=== PATIENT | male | born 1960 | race Caucasian/White ===

== ENCOUNTER → 2024-07-07 14:07 | Outpatient (REF) | payer BC, SELFPAY | LOC: RAD 14:07 | PROVIDERS: ATTENDING PHYSICIAN Internal Medicine; FAMILY PHYSICIAN Family Medicine | DX: M79.89 Other specified soft tissue disorders (principal) | CPT/HCPCS: 93971 ==

== ENCOUNTER 2024-08-11 07:46 | Outpatient (RCR) | payer BC, SELFPAY ==
[2024-08-11 08:00] VITALS: BP 132/91
[2024-08-11] MEDS: SODIUM BICARBONATE 1150 MEQ IV (08:03)
[2024-08-11 09:56] VITALS: BP 130/78
== END 2024-08-13 08:38 | disposition home or self-care (01) ==
LOC: OID 07:46
PROVIDERS: ATTENDING PHYSICIAN Surgery Vascular Surgery; FAMILY PHYSICIAN Family Medicine
DX: I72.4 Aneurysm of artery of lower extremity (principal)
CPT/HCPCS: 75635; 96365; 96366; Q9967

== ENCOUNTER → 2024-08-11 08:09 | Outpatient (REF) | payer BC, SELFPAY | LOC: RAD 08:09 | PROVIDERS: ATTENDING PHYSICIAN Surgery Vascular Surgery | DX: I72.4 Aneurysm of artery of lower extremity (principal) | CPT/HCPCS: 75635; Q9967 ==

== ENCOUNTER 2024-09-30 06:05 | Inpatient (IN) | payer BC, SELFPAY ==
[2024-09-27 09:14] VITALS: BMI 27.2
[2024-09-27 09:48] LABS: INR 1.29; PT 16.4 Sec (11.4-14.6)
[2024-09-27 09:49] LABS: APTT 37.7 Sec (23.4-35.0)
[2024-09-27 09:51] LABS: % Basophils 0.4 % (0-2); % Immature Granulocytes 0.5 % (0-0.5); % Lymphocytes 13.6 % (20.5-51.1); % Monocytes 8.1 % (1.7-9.3); % Neutrophils 74.4 % (42.2-75.2); Absolute Eosinophils 0.3 10^3/uL (0-0.7); Absolute Lymphocytes 1.1 10^3/uL (1.2-3.4); Absolute Monocytes 0.7 10^3/uL (0.1-0.6); Absolute Neutrophils 6.3 10^3/uL (1.4-6.5); Hematocrit 36.9 % (39.0-52.0); Hemoglobin 11.6 g/dL (13.0-18.0); Mean Corp Hgb Conc. 31.4 g/dL (33.0-37.0); Mean Corpuscular Volume 82.7 fL (80.0-94.0); Mean Platelet Volume 9.3 fL (7.4-10.4); Nucleated Red Blood Cells % 0 % (-); Platelet Count 243 10^3/uL (130-400); Red Blood Cell Count 4.46 10^6/uL (4.70-6.10); Red Cell Dist. Width 16.8 % (11.5-14.5); White Blood Cell Count 8.4 10^3/uL (4.8-10.8)
[2024-09-27 09:59] LABS: Blood Urea Nitrogen 33 mg/dl (9-20); Calcium 9.5 mg/dl (8.4-10.2); Carbon Dioxide 24 mmol/L (22-30); Chloride 105 mmol/L (98-107); Estimated Creatinine Clearance 32 ml/min; Glucose 148 mg/dl (70-99); Potassium 4.6 mmol/L (3.5-5.1); Sodium 139 mmol/L (135-145); eGFR 31.13
[2024-09-30] VITALS (10 sets, daily range): BP systolic 95–120; BP diastolic 68–84; BMI 27.2
[2024-09-30] MEDS: PERIDEX 0.12% ORAL RINSE 15 ML PO (06:32)
[2024-09-30] MEDS: BACTROBAN NASAL 1 GRAM NASAL (06:32)
[2024-09-30] MEDS: NSS 500 IV (06:33)
[2024-09-30 06:54] LABS: Glucose - Point of Care 119 mg/dl (70-99)
--- NOTE | 2024-09-30 07:07 | W.SUR.PREOP ---
Pre-Operative Surgical Note
-
I have examined this patient prior to the performance of the scheduled procedure.
The patient's condition is unchanged from the time of the current History and
Physical and the patient is able to undergo the scheduled procedure.
--- NOTE | 2024-09-30 10:45 | W.SUR.POST ---
Surgical Immediate Post Op
Note
Pre Op Diagnosis: Left lower extremity popliteal artery aneurysm
Post Op Diagnosis: Left lower extremity popliteal artery aneurysm
Procedure Performed: Ligation of left popliteal artery aneurysm with bypass utilizing saphenous vein
Primary Surgeon: Kadeem Jacobsen MD
chiropractic assistant: BERYL Rahman
Anesthesia: GETA
Estimated Blood Loss: 20 mL
Fluids: See anesthesia flowsheet
Drains/Shunts: N/A
Specimens/Cultures: N/A
Doppler/Duplex/Angio (Y/N): Yes
Complications: None
Operative Findings: Palpable DP pulse following procedure
--- NOTE | 2024-09-30 10:47 | OR.RPT ---
Operative Report
Operative Report
PROCEDURE DATE: 09/30/2024
Preoperative diagnosis: Left popliteal artery aneurysm.
Postoperative diagnosis: Same
Procedure: Open surgical repair of left popliteal artery aneurysm with medial exclusion/bypass using ipsilateral nonreversed greater saphenous vein conduit.
Surgeon: Delmar
Electronic Resources Librarian: FÉLIX Dee, required for all aspects of procedure including assistance with traction/countertraction, following of suture line, assistance with closure.
Complications: None
Anesthesia: General
Indications for procedure:
Left popliteal artery aneurysm. Met size criteria for repair. In addition may have caused some transient compressive effects. Had discussed posterior approach to relieve any potential compression, but based on anatomy and proximal extent, I felt
it was not easily feasible from a posterior approach. In addition his symptoms of swelling had abated. Regardless with/benefits/alternatives of repair were fully discussed. Patient understood and wished to proceed.
Description of procedure:
Patient was identified brought to the operating room placed on the table in supine position. After the adequate administration of anesthesia he was prepped and draped in the standard surgical fashion. A standard preoperative timeout was undertaken
and everybody was in agreement the plan. A longitudinal incision was made in the distal medial thigh that was carried through skin subcutaneous tissue. The sartorius muscle was reflected posteriorly. I dissected through the loose areolar tissue
and identified the above-knee popliteal artery. I carefully dissected away from surrounding structures taking care to avoid any injury to the structures. I circumferentially dissected it right at a knuckle like tortuosity. This correlated on the
CT scan to the transition from where it was more normal to slightly abnormal and then subsequently aneurysmal. Therefore I felt that this was a good juncture and would be a good location for proximal anastomosis. At this point, I then in the
subcutaneous tissues at the inferior aspect of the incision site was able to identify the greater saphenous vein which had marked preoperatively. I now dissected it within this surgical field. It was mobilized out of its bed, any branches ligated
between silk ties and/or clips and then divided. Now I made a longitudinal incision just below the knee in the medial calf about 1 fingerbreadth inferior to the tibia. This is carried through the skin subcutaneous tissue. Great care was taken to
avoid any injury to the greater saphenous vein in this field. I carefully mobilized the vein here ligating any branches between silk ties and then dividing them. However I did note that the vein looked slightly smaller in this segment. Therefore
I was not sure that I would use it. Regardless I was able to retract the vein inferiorly and then used the electrocautery to dissect through the deeper layers and the crural fascia layer. I then reflected the gastrocnemius muscle posteriorly and
identified the popliteal vein and the artery. The artery was soft and nicely pulsatile here. I passed a vessel loop around after careful circumferential dissection.
Now that I had proximal and distal arterial exposure, I initially thought perhaps I could create an anatomic tunnel, however I was concerned that due to the popliteal artery aneurysm the anatomic tunnel would be very tight. In addition and trying
to dissect along the popliteal artery proximally and distally behind the knee in order to facilitate a tunnel, I noted that the artery was very sticky and inflamed to the surrounding tissues as is the case often with popliteal artery aneurysms.
Therefore I elected not to tunnel in such a fashion. I created a subsartorial tunnel between the above the knee and below the knee exposure sites. I passed an umbilical tape. I confirmed that there was no tendon or muscle compression through this
tunnel. (I flexed and extended the knee confirming that). Now I completed dissection and mobilization of the vein. I noted that as I extended my incision more proximally in the thigh the vein appeared more robust. I was more satisfied with its
appearance. Therefore I dissected for a suitable portion in the thigh slightly more proximally. I mobilized out of its bed by ligating any branches between silk ties and/or clips and then dividing them. Once I had a suitable section mobilized, I
ligated the vein proximally distally with heavy silk tie and a clip. I then transected approximately distally. I then distended under heparinized saline. It distended well. I now used a Wilkins valvulotome and with the vein under distention with
heparinized saline, I valvulotomized the vein. This way I could maintain the vein in a nonreversed fashion. Now I gave the patient 7000's of intravenous heparin. Once this had circulated I now clamped the proximal above the knee popliteal artery
just proximal to the knuckle like to turn. I then ligated the more distal popliteal artery with a heavy silk tie x 2 as well as silk suture ligature. I then transected the artery. I now spatulated the greater saphenous vein (maintaining
nonreversed orientation) and sewed an end-to-end anastomosis to the popliteal artery using a running 6-0 Prolene suture. I then completed and tied down my suture line. I then released my graft clamp. There was excellent pulsatile flow into the
vein graft. I placed a single 6-0 Prolene muallc-pd-nbfxf repair stitch on a single site of bleeding on the suture line. Hemostasis was fully noted now. I marked the anterior surface of the vein under distention to avoid any kinking or twisting
and then passed it through my tunnel that I created. I confirmed no kinking and there was excellent pulsatile flow still. I then reexposed my below the knee popliteal artery here. I confirmed no redundancy of the vein through the tunnel. I then
ligated the popliteal artery proximally in the field with 2 heavy silk ties thereby completing the medial exclusion of the popliteal artery aneurysm. I did not need to place an additional suture ligature as the ties were proximal to a small branch
that held the ties better in place, and I did place additional clips as well. The distal end of the popliteal artery looks reasonably healthy. I now trimmed and spatulated the distal aspect of the vein graft and sewed an end-to-end anastomosis to
the popliteal artery below the knee with a running 6-0 Prolene suture. Prior to completing and tying down my suture line I backbled the [place] artery and then transiently flashed my bulldog clamp on the vein graft. I then irrigated heparinized
saline. I then completed and tied down my suture line. Next I released my below the knee popliteal artery clamp and released the bulldog clamp on the vein graft. There is now excellent pulsatile flow through the vein graft and into the below the
knee popliteal artery. Doppler confirmed this as well. The patient had a palpable dorsalis pedis pulse on the foot, and this was confirmed with a Doppler as well. I also confirmed no diminution in the pulsation or Doppler signals with flexion or
extension of the knee. I manually with my finger and noted no compression of the vein graft through the tunnel. At this point is very satisfied. I placed a single 6-0 Prolene omylad-rz-rhldp repair suture on the below the knee popliteal artery
suture line, and hemostasis were then fully noted. I irrigated the incision sites. I then confirmed full hemostasis. We then closed the incision sites. The arterial exposure sites were closed with 2-0 Vicryl's interrupted deep layer. This was
followed by 3-0 Vicryl and 4-0 Monocryl subcuticular stitch. The continuation of the above-knee incision that was where we harvested the greater saphenous vein from was closed with 3-0 Vicryl running followed by 4-0 Monocryl subcuticular stitch as
well. Dermabond was applied to closure sites. Dressings were applied. The patient tolerated procedure well.
[2024-09-30 11:20] LABS: Hematocrit 33.3 % (39.0-52.0); Hemoglobin 10.4 g/dL (13.0-18.0); Mean Corp Hgb Conc. 31.2 g/dL (33.0-37.0); Mean Corpuscular Hgb 26.3 pg (27.0-31.0); Mean Corpuscular Volume 84.3 fL (80.0-94.0); Mean Platelet Volume 8.9 fL (7.4-10.4); Platelet Count 183 10^3/uL (130-400); Red Blood Cell Count 3.95 10^6/uL (4.70-6.10); Red Cell Dist. Width 16.7 % (11.5-14.5); White Blood Cell Count 10.1 10^3/uL (4.8-10.8)
[2024-09-30 11:38] LABS: Blood Urea Nitrogen 37 mg/dl (9-20); Calcium 7.8 mg/dl (8.4-10.2); Carbon Dioxide 12 mmol/L (22-30); Chloride 105 mmol/L (98-107); Estimated Creatinine Clearance 33 ml/min; Glucose 218 mg/dl (70-99); Potassium 4.4 mmol/L (3.5-5.1); Sodium 136 mmol/L (135-145); eGFR 32.83
[2024-09-30] MEDS: NSS 1000 IV (11:42)
[2024-09-30] MEDS: NOVOLOG vial 2 UNITS SC (11:45)
--- NOTE | 2024-09-30 12:30 | PTCARENOTE ---
Pt was rec'd from [employer] [facility] and settled into ICU room 3357. Pt is AOx3, pleasant, soft spoken, no c/o pain at this time. GARCIA, Neurovascular checks performed per protocol, see flowsheet. SR with PVCs on tele, ECG performed per protocol, DP pulses
palpable, right radial A line leveled and zeroed, correlating with cuff. Sa02 97% on 2L, attempting to wean off 02. CLD ordered, pt tolerating well with no nausea, diet advanced to regular per orders. 16 fr thermister guzman draining clear yellow
urine, due to be removed POD #2. Skin assessed, post op dressing in place, C/D/I. Pt oriented to room and plan of care. Admission and assessment as documented. Pt oriented to room and plan of care. Safe environment maintained.
--- NOTE | 2024-09-30 13:13 | CON.INTV ---
Consultation
Consultation Request
Date/Time Consultation Requested: 09/30/2024-1:15 PM
Date/Time Consultation Performed: 09/30/2024-1:15 PM
Requesting Provider: Vascular surgery
Performing Provider: Dr. Morales
Reason for Consultation: Postop critical care management
Medical History
-
Chief Complaint: PAD
History of Present Illness:
64-year-old male with history of hypertension, diabetes, cardiomyopathy, ANCA vasculitis, alcohol use disorder, atrial flutter who had left popliteal artery aneurysm underwent open surgical repair with medial exclusion/bypass using ipsilateral
greater saphenous vein conduit-Dr. Jacobsen-supervisor of research consulted for postoperative critical care management 09/30/2024. He denies any shortness of breath, chest pain, chest congestion, productive cough, pleurisy, abdominal pain, focal weakness
Past Medical History
Past Medical History: None (Hypertension. Diabetes. Atrial flutter with AV block-cardioversion 01/2022. Left atrial appendage thrombus. Mitral regurgitation. Alcohol use disorder-none 2017. Cardiomyopathy EF 25% 2018. Gout. ANCA vasculitis
2021. Right eye surgery.)
Social History
Tobacco: Non-smoker
Alcohol: Former (None since 2017)
Drug: None
Living: With Family
Occupational Exposures: No known asbestos exposure
Environmental Exposures: No known tuberculosis exposure
Family History
Family History: Reviewed & Not Pertinent
Allergies / Home Medications
Allergies
Allergy/AdvReac Type Severity Reaction Status Date / Time
No Known Allergies Allergy Verified 09/30/24 06:26
Home Medications
�Medication �Instructions �Recorded �Confirmed �Last Taken �Type
apixaban 5 mg tablet (Eliquis) 5 mg PO BID Blood clot 11/06/21 09/30/24 09/27/24 22:00 History
prevention/tx
isosorbide dinitrate 10 mg tablet 10 mg PO TID Heart 11/06/21 09/30/24 09/30/24 05:30 History
disease/condition
metoprolol succinate 100 mg 200 mg PO DAILY Heart 11/06/21 09/30/24 09/30/24 05:30 History
tablet,extended release 24 hr disease/condition
prednisone 20 mg tablet 4 mg PO DAILY 01/24/22 09/30/24 09/28/24 05:00 History
amlodipine 10 mg tablet 10 mg PO DAILY 08/11/24 09/30/24 09/30/24 05:30 History
losartan 50 mg tablet 75 mg PO DAILY 08/11/24 09/30/24 09/30/24 05:30 History
Review of Systems
-
Unable to Obtain full review of systems at this time due to: Other (Per HPI)
Vitals / Labs / Diagnostic Testing
Vital Signs
Temp Pulse Resp BP Pulse Ox
97.4 F 87 12 108/75 94
09/30/24 11:45 09/30/24 12:30 09/30/24 12:30 09/30/24 12:30 09/30/24 12:30
Lab Data
09/30/24 10:57
09/30/24 10:57
Diagnostic Testing:
Physical Exam
-
Exam:
Well-nourished and well-developed in no apparent distress
HEENT-atraumatic, normocephalic
Neck-supple, no JVD, no bruit
Heart-regular rate and rhythm-no murmurs, rubs or gallops
Chest-clear to auscultation, no wheezes, crackles
Back-no tenderness
Abdomen-soft, nontender, nondistended, no hepatosplenomegaly
Extremities-no cyanosis, clubbing, edema and good peripheral pulses
Integument-intact, no rashes, lesions or ecchymosis
Neurology-alert and oriented, nonfocal motor and sensory exam
Assessment
-
64-year-old male with history of hypertension, diabetes, cardiomyopathy, ANCA vasculitis, alcohol use disorder, atrial flutter who had left popliteal artery aneurysm underwent open surgical repair with medial exclusion/bypass using ipsilateral
greater saphenous vein conduit-Dr. Jacobsen-supervisor of research consulted for postoperative critical care management 09/30/2024.
Left popliteal artery aneurysm
Status post bypass using ipsilateral greater saphenous vein conduit-Dr. Jacobsen-09/30/2024
Mild vurwez-dewzdnsbom-peskqlaiau 10.4
Metabolic acidosis
Chronic renal failure
Hyperglycemia
Hypocalcemia
Conditions present prior to admission:
Hypertension.
Diabetes.
Atrial flutter with AV block-cardioversion 01/2022.
Left atrial appendage thrombus.
Mitral regurgitation.
Alcohol use disorder-none 2017.
Cardiomyopathy EF 25% 2017-subsequently resolved after alcohol cessation
Gout.
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
Chronic kidney disease-stage IIIa with proteinuria
Elevated anticardiolipin IgM antibody 2021
History of WILLIE-stopped using CPAP-last sleep study over 10 years ago
Right eye surgery.
Plan
Postoperative surgical intensive care unit monitoring
Supplemental oxygen as needed
Incentive spirometry
Aspiration precautions
Neuro and vascular checks per protocol
Monitor blood pressure/perfusion pressures and pulses closely
Vascular surgery following-correspondence and operative notes reviewed
Monitor blood sugar
Insulin supplementation as needed
Monitor renal function
Replace electrolytes
DVT prophylaxis
Early nutrition
Early mobilization
Associations with untreated sleep apnea were reviewed with patient
Patient reports history of WILLIE and previous CPAP use-none in the last 10 years-recommend outpatient evaluation
Critical care statement: A total of 55 minutes of critical care time was provided for this patient today. This includes management of unstable vital signs, evaluation of the patient at bedside, reviewing the patient's pertinent medical records
including radiographs, microbiology, laboratory evaluations, and discussion with primary team, consultants, pharmacy, nutrition, physical therapy, case management, charge nurse, critical care nursing, and respiratory therapy.
Diagnostic data:
Chest x-ray 02/03/2018-enlarged cardiac silhouette
Chest x-ray 11/06/2021-mild cardiomegaly
Chest x-ray 09/27/2024-NAD
Echocardiogram 02/04/2018-EF 15-20%, severe mitral regurgitation
Echocardiogram 07/02/2019-EF 55-60%, intermediate diastolic dysfunction, mild to moderate mitral regurgitation
Echocardiogram 09/03-EF 70-75%, no significant valvular disease
Transesophageal echocardiogram 01/24/2022-EF 55-60%, mild to moderate mitral regurgitation
Cardioversion 01/24/2022-successful synchronized cardioversion from atrial fibrillation to sinus rhythm
Nuclear stress test 09/03-negative for ischemia, EF 45%, moderate risk study
VQ scan 02/03/2018-Normal ventilation/perfusion scan, very low probability for pulmonary embolism
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
Data Reviewed
-
EKG: Report reviewed by me
Radiology: Report reviewed by me
CT Scan: Report reviewed by me
Medical Tests (Nuc Med, Echo etc): Report reviewed by me
Labs: Labs reviewed by me
Old Records: Reviewed
Critical Care Time (in minutes): 55
[2024-09-30] MEDS: ISORDIL 10 MG PO ×2 (16:36→22:07)
--- NOTE | 2024-09-30 18:34 | PTCARENOTE ---
Assessment remained unchanged this afternoon, pt with no complaint of pain, tolerating regular diet, weaned to room air, plan of care reviewed with vascular team. Neurovascular checks WNL - see flowsheet. Call conrad in hand.
--- NOTE | 2024-09-30 20:00 | PTCARENOTE ---
Received patient via handoff. Pt AAOx3, able to GARCIA, afebrile. NSR with PVC's and prolonged QT, palpable pulses. 98% on RA w/ clear lung sounds. Hypoactive bowel sounds in all 4Q. Temp sensing Stubbs draining clear yellow urine. Primaseal surgical
dressing on left leg CDI w/ no drainage, scabs on left benton see flowsheet. Right radial A line zeroed and correlates with cuff. NS running @80ml/Hr. Call conrad at bedside.
[2024-09-30] MEDS: HEPARIN 5000 UNITS SC (20:37)
[2024-10-01] VITALS (13 sets, daily range): BP systolic 109–142; BP diastolic 77–91; PULSE 77; BMI 27.0
--- NOTE | 2024-10-01 | PTCARENOTE ---
All systems reassessed. Pulses still palpable in left extremity. No drainage on surgical site. Pt states 0/10 pain. Call conrad at bedside.
[2024-10-01] MEDS: NSS 1000 IV (00:04)
[2024-10-01] MEDS: TYLENOL 650 MG PO ×2 (01:23→10:28)
--- NOTE | 2024-10-01 04:00 | PTCARENOTE ---
All systems reassessed. Labs drawn and hygiene performed. Pt states pain 0/10. Call conrad at bedside.
[2024-10-01] MEDS: MELATONIN 10 MG PO (04:15)
[2024-10-01 04:40] LABS: Hematocrit 29.9 % (39.0-52.0); Hemoglobin 9.8 g/dL (13.0-18.0); Mean Corp Hgb Conc. 32.8 g/dL (33.0-37.0); Mean Corpuscular Hgb 26.4 pg (27.0-31.0); Mean Corpuscular Volume 80.6 fL (80.0-94.0); Mean Platelet Volume 9.2 fL (7.4-10.4); Platelet Count 209 10^3/uL (130-400); Red Blood Cell Count 3.71 10^6/uL (4.70-6.10); Red Cell Dist. Width 16.1 % (11.5-14.5); White Blood Cell Count 8.2 10^3/uL (4.8-10.8)
[2024-10-01 05:03] LABS: Blood Urea Nitrogen 35 mg/dl (9-20); Carbon Dioxide 15 mmol/L (22-30); Chloride 108 mmol/L (98-107); Estimated Creatinine Clearance 41 ml/min; Glucose 150 mg/dl (70-99); Potassium 4.5 mmol/L (3.5-5.1); Sodium 137 mmol/L (135-145); eGFR 41.77
[2024-10-01 05:05] LABS: PT 14.8 Sec (11.4-14.6)
[2024-10-01 05:06] LABS: APTT 34.4 Sec (23.4-35.0)
--- NOTE | 2024-10-01 07:41 | W.PN.INTV ---
Today's Communication / Plan
Recommendations
deline
Discontinue IV fluids
Continue neurovascular checks
Increase activity
Outpatient pulmonary/sleep disorders follow-up
Transfer out of ICU-call pulmonary if respiratory issues arise
Assessment
-
64-year-old male with history of hypertension, diabetes, cardiomyopathy, ANCA vasculitis, alcohol use disorder, atrial flutter who had left popliteal artery aneurysm underwent open surgical repair with medial exclusion/bypass using ipsilateral
greater saphenous vein conduit-Dr. Jacobsen-department store general manager consulted for postoperative critical care management 09/30/2024.
Left popliteal artery aneurysm
Status post bypass using ipsilateral greater saphenous vein conduit-Dr. Jacobsen-09/30/2024
Mild rxmhox-ffyanaxhre-dckgkigzyb 10.4
Metabolic acidosis
Chronic renal failure
Hyperglycemia
Hypocalcemia
Conditions present prior to admission:
Hypertension.
Diabetes.
Atrial flutter with AV block-cardioversion 01/2022.
Left atrial appendage thrombus.
Mitral regurgitation.
Alcohol use disorder-none 2017.
Cardiomyopathy EF 25% 2017-subsequently resolved after alcohol cessation
Gout.
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
Chronic kidney disease-stage IIIa with proteinuria
Elevated anticardiolipin IgM antibody 2021
History of WILLIE-stopped using CPAP-last sleep study over 10 years ago
Right eye surgery.
Plan
Hemodynamically and neurovascularly intact
Wean supplemental oxygen
Incentive spirometry encourage
Aspiration precautions
Monitor hemoglobin
Transfuse if needed
Monitor blood sugars
Insulin supplementation if needed
Neuro and vascular checks per protocol also continue
Vascular surgery closely
DVT prophylaxis recommended
Nutrition
Increase activity/physical therapy
Associations with untreated sleep apnea were reviewed with patient
Patient reports history of WILLIE and previous CPAP use-none in the last 10 years-recommend outpatient evaluation
Patient can be transferred out of ICU-call pulmonary if respiratory issues arise
Reviewed the patient's pertinent medical records including radiographs, microbiology, laboratory evaluations, and discussion with primary team, consultants, pharmacy, nutrition, physical therapy, case management, charge nurse, critical care
nursing, and respiratory therapy.
Diagnostic data:
Chest x-ray 02/03/2018-enlarged cardiac silhouette
Chest x-ray 11/06/2021-mild cardiomegaly
Chest x-ray 09/27/2024-NAD
Echocardiogram 02/04/2018-EF 15-20%, severe mitral regurgitation
Echocardiogram 07/02/2019-EF 55-60%, intermediate diastolic dysfunction, mild to moderate mitral regurgitation
Echocardiogram 09/03-EF 70-75%, no significant valvular disease
Transesophageal echocardiogram 01/24/2022-EF 55-60%, mild to moderate mitral regurgitation
Cardioversion 01/24/2022-successful synchronized cardioversion from atrial fibrillation to sinus rhythm
Nuclear stress test 09/03-negative for ischemia, EF 45%, moderate risk study
VQ scan 02/03/2018-Normal ventilation/perfusion scan, very low probability for pulmonary embolism
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
Subjective Dataa
Subjective Data
Date of Service:
Date of Service: October 01, 2024
Chief Complaint: Incubator Tender Follow Up and Pulmonary Follow Up
Subjective:
Slept well, no complaints of shortness of breath, chest pain, abdominal pain, and neurovascularly intact
Review of Systems
General: Other (Per HPI)
Objective Data
Data Reviewed
Vital Signs / I&O / Oxygen:
Vital Signs
Temp Pulse Resp BP Pulse Ox
97.7 F 78 26 109/81 92
10/01/24 07:33 10/01/24 06:00 10/01/24 06:00 09/30/24 13:00 10/01/24 06:00
Intake and Output
09/30/24 10/01/24 10/02/24
06:59 06:59 06:59
Intake Total 3680 / 3680
Output Total 2385 / 2385
Balance 1295 / 1295
SaO2 92
Nasal Cannula flow liters per 2
minute
Physical Exam
General: Respiratory Distress (n) and Comfortable
HEENT: Normocephalic, Anicteric and Moist Mucous Membranes
Cardiovascular: Regular Rhythm
Respiratory: Clear ( diminished breath sounds and prolonged expiratory time), Wheeze (n), Crackles (n), Rhonchi (n), Non-Labored Respirations, Accessory Resp Muscle Use (n) and Stridor (n)
GI: Soft, Non Distended and Non Tender
Neurology: Awake, Alert and No Motor Deficits
Skin: Warm, Good Color, Cyanosis (n) and Jaundice (n)
Labs/Micro/Reports
Lab Data
10/01/24 04:23
10/01/24 04:23
Laboratory Results
10/01/24
04:23
PT 14.8 H
INR 1.10
APTT 34.4
--- NOTE | 2024-10-01 08:07 | W.PN.VS ---
Addendum entered and electronically signed by Jovanny Stubbs III, MD 10/01/24 14:07:
This patient was seen and examined with BERYL Munoz. I agree with the history and physical exam as well as the assessment and plan.
Signed:
Jovanny Stubbs III, MD
[facility]
[phone] (zwbg)
Original Note:
Today's Communication / Plan
-
See below.
Assessment/Plan
-
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
Plan:
Discontinue arterial line
Discontinue IV fluids
Discontinue Stubbs catheter
Continue neurovascular checks
OOB to chair with progression to ambulation as tolerated
PT evaluation
Will reinitiate home anticoagulation this evening
Possible downgrade to telemetry later this afternoon
Continue to encourage incentive spirometry
Subjective Data
-
Date of Service: October 01, 2024
Patient seen and examined at bedside, reports adequate postoperative pain management. Denies nausea, vomiting, fever, and chills. Reports tolerating p.o. intake. Endorses eagerness for removal of AV lines and Stubbs catheter and ability to get out
of bed.
Objective Data
-
Vital Signs
Temp Pulse Resp BP Pulse Ox
97.7 F 78 26 109/81 92
10/01/24 07:33 10/01/24 06:00 10/01/24 06:00 09/30/24 13:00 10/01/24 06:00
Intake and Output
09/30/24 10/01/24 10/02/24
06:59 06:59 06:59
Intake Total 3680 / 3680
Output Total 2385 / 2385
Balance 1295 / 1295
Intake:
Oral fluids 2039
IV fluids (Total) 1640 / 1640
NSS 1640 / 1640
Output:
Urine, Stubbs 2384 / 238
Lab Results
10/01/24 04:23
10/01/24 04:23
Calcium 8.0 mg/dl (8.4-10.2) L 10/01/24 04:23
Magnesium 2.0 mg/dl (1.6-2.3) 10/01/24 04:23
Physical Exam
-
No apparent distress, resting in bed comfortably
No tachycardia
No dyspnea on room air
ABD nontender, nondistended
Left lower extremity surgical dressing CDI, no evidence of hematoma, all surrounding compartments soft, no swelling
Left foot warm, palpable DP and PT pulse +2
Stubbs draining clear yellow urine
[2024-10-01] MEDS: TOPROL XL 200 MG PO (08:57)
[2024-10-01] MEDS: ISORDIL 10 MG PO ×3 (08:59→22:01)
[2024-10-01] MEDS: COZAAR 75 MG PO (08:59)
[2024-10-01] MEDS: NORVASC 10 MG PO (09:01)
--- NOTE | 2024-10-01 09:30 | PTCARENOTE ---
Pt was rec'd from night RN at 07:15, AOx3, pleasant and cooperative. Neurovascular checks remain WNL. Orders and plan of care reviewed and discussed with care team. Stubbs dc'd, IVF dc'd, right radial Maira Teresa dc'd, RAC PIV also removed per pt request,
and pt was assisted oob to bathroom for loose brown BM, hygiene and oral care provided with minimal assistance. CHG wipe bath done. All linens changed. Pt seated in chair, denies pain except for when he bent his leg at the knee, he rates the pain
6/10 intermittent for which he requested PRN Tylenol, see MAR. VSS, safe environment maintained. Pt due to void 15:30, verbalized understanding regarding notifying RN when he urinates. Pt may be downgraded this afternoon depending on progress as per
vascular.
[2024-10-01] MEDS: DELTASONE 4 MG PO (09:40)
[2024-10-01] MEDS: HEPARIN SC (10:37)
--- NOTE | 2024-10-01 11:27 | CM ---
CM following re: discharger planning.
Reviewed pt's chart, met with pt.
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
Pt reports he lives alone in a condo, no steps, has supportive sister and her family. Pt described himself as independent in all areas [employer], retired. No DME, VN or SNF history. Pt expressed his desire to return back home at discharge.
PCP: [facility]
Pharmacy: [facility]
D/C plan: home with anticipated no needs. Sister to transport at discharge.
CM will follow with discharge plan updates as needed.
--- NOTE | 2024-10-01 12:00 | PTCARENOTE ---
Pt with approx 14 beat run VF/VT alarm on tele, asymptomatic, seated in chair, MDs notified. Order rec'd-ECG obtained, consult to cards placed. Pt resting back in bed. No complaints.
--- NOTE | 2024-10-01 13:26 | CON.CAR ---
Addendum entered and electronically signed by Dheearj Murray MD 10/01/24 17:03:
I saw and examined the patient.
The HEALTH CARE SANITARY TECHNICIAN's note was reviewed and I agree with the note.
Patient known from outpatient preoperative valuation. 64-year-old male with a history of atrial flutter, chronic anticoagulation with Eliquis, CKD, vasculitis prior history of cardiomyopathy which resolved and PAD who underwent popliteal aneurysm
repair. Patient noted to have short run of asymptomatic NSVT. Currently without symptoms including no chest pain palpitations lightheadedness syncope or near syncope. Of note patient is on Toprol XL 200 mg daily Toprol-XL 200 mg daily he took a
dose on the morning of his surgery and also has had his dose this morning but it does not appear that he had a dose yesterday. Currently patient is comfortable exam notable for postop dressings from recent lower extremity surgery otherwise
unremarkable. ECG shows a sinus rhythm with no acute changes.
-Monitor on telemetry
-Continue outpatient dosing of beta-grady
-Echocardiogram
-Check troponins.
Original Note:
Consultation
Consultation Request
Date/Time Consultation Requested: 10/01/24 12p
Date/Time Consultation Performed: 10/01/24 1p
Requesting Provider: BERYL Alcocer
Performing Provider: BERYL Beltran for Dr. Murray
Reason for Consultation: NSVT
Medical History
-
Chief Complaint: surgical repair of left popliteal artery aneurysm with bypass
History of Present Illness:
Mr. Hansen is a 64 yo male with atrial flutter (s/p DCCV 2021) on Eliquis, ANCA vasculitis, CKD3b, HTN, resolved cardiomyopathy and PAD, who is here for planned open surgical repair of left popliteal artery aneurysm with medial exclusion/bypass
using ipsilateral nonreversed greater saphenous vein conduit on 09/30/[address] Jacobsen. Post-op day 1, today, he had a 14 beat run of NSVT on tele, while sitting in his hospital bed, he was asymptomatic. K is 4.5 today. He reports feeling well and
denies any cardiac complaints.
Past Medical History
Past Medical History: Other (as above)
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
Social History
Tobacco: Non-Smoker
Alcohol: Occasional
Personal:
Living: With Family
Family History
Family History: Reviewed & Not Pertinent
Allergies / Home Medications
Allergy/AdvReac Type Severity Reaction Status Date / Time
No Known Allergies Allergy Verified 09/30/24 06:26
�Medication �Instructions �Recorded �Confirmed �Type
apixaban 5 mg tablet (Eliquis) 5 mg PO BID Blood clot 11/06/21 09/30/24 History
prevention/tx
isosorbide dinitrate 10 mg tablet 10 mg PO TID Heart Failure 11/06/21 09/30/24 History
metoprolol succinate 100 mg 200 mg PO DAILY Heart Failure 11/06/21 09/30/24 History
tablet,extended release 24 hr
prednisone 20 mg tablet 4 mg PO DAILY Anti-Inflammatory 01/24/22 09/30/24 History
amlodipine 10 mg tablet 10 mg PO DAILY Blood Pressure 08/11/24 09/30/24 History
losartan 50 mg tablet 75 mg PO DAILY Heart Failure 08/11/24 09/30/24 History
Review of Systems
-
History Source: Patient
All other systems: Negative unless noted
Physical Exam
Vital Signs
Temp Pulse Resp BP Pulse Ox
97.6 F 70 19 129/77 95
10/01/24 11:17 10/01/24 12:28 10/01/24 12:28 10/01/24 12:28 10/01/24 10:36
Lab Results
10/01/24 04:23
10/01/24 04:23
Physical Exam
General: Well Developed, Well Nourished and No Apparent Distress
HEENT: Normocephalic, Anicteric and Moist Mucous Membranes
Respiratory: Clear and Non Labored Respirations
Cardiac: S1/S2 and Regular Rhythm
Breast: Deferred by me
GI: Soft, Non Tender and Normal Bowel Sounds
Rectal: Deferred by Provider
Genito-urinary: No Costovertebral Tender
Musculoskeletal: No Clubbing and No Cyanosis
Skin: Warm and Dry
Neuro: AO x 3
Hematologic/Lymphatic: No Lymphadenopathy
Psych: Calm
Impression / Plan
-
NSVT - 14 beat run on tele today while sitting.
- asymptomatic.
- no recurrence.
- K 4.5.
- will check an echo.
- monitor on tele.
PAD - s/p open surgical repair of left popliteal artery aneurysm with medial exclusion/bypass using ipsilateral nonreversed greater saphenous vein conduit.
- per vascular surgery.
Aflutter - stable in NSR.
- denies palpitations.
- on Eliquis (last dose was 09/27/24 evening) held for vascular surgery. Eliquis resumed 10/01/24.
CKD 3b - stable.
- followed by Dr. Fall.
Cardiomyopathy - resolved.
- EF normal on SAGE 2021.
- check echo today.
Data Reviewed
-
EKG: Tracing Personally Visualized and interpreted (SR with fusion complexes 77 bpm)
Radiology: Report Reviewed by me (CXR: NAD)
Medical Tests (Nuc Med, Echo etc): Report Reviewed by me (SAGE 01/2022: 55-60%, mild to moderate MR, PFO, no thrombus.)
Labs: Labs Reviewed by me
Old Records: Reviewed
--- NOTE | 2024-10-01 16:59 | W.[place]-PDMP ---
[place]PD[place]
-
Checked the [place]- Prescription Drug Monitoring Program website, no red flags identified; safe to proceed with prescription.
--- NOTE | 2024-10-01 17:18 | PTCARENOTE ---
Pt reassessed. No complaints, visiting with family in room. Pt did void in urinal 250 mls yellow urine at 15:30. Orders for echo, troponins rec'd per cardiology. Safe environment maintained.
[2024-10-01 18:36] LABS: Troponin I 0.026 ng/ml
--- NOTE | 2024-10-01 20:02 | PTCARENOTE ---
On assessment pt AAOx3, denies pain and SOB, SR with PVCs on the monitor, +pulses, no pain/numbness/tingling to LLE, dressing C/D/I, pt ambulates in room, no complaints at this time, call conrad in reach.
[2024-10-01] MEDS: ELIQUIS 5 MG PO (22:01)
[2024-10-02] VITALS (12 sets, daily range): BP systolic 115–142; BP diastolic 81–92; BMI 26.5
--- NOTE | 2024-10-02 | PTCARENOTE ---
pt ambulates to bathroom independently, denies pain, call conrad in reach
--- NOTE | 2024-10-02 03:40 | PTCARENOTE ---
no changes from prior assessment, denies pain, call conrad in reach
[2024-10-02 05:26] LABS: Hematocrit 35.4 % (39.0-52.0); Hemoglobin 11.1 g/dL (13.0-18.0); Mean Corp Hgb Conc. 31.4 g/dL (33.0-37.0); Mean Corpuscular Hgb 26.2 pg (27.0-31.0); Mean Corpuscular Volume 83.7 fL (80.0-94.0); Mean Platelet Volume 9.4 fL (7.4-10.4); Platelet Count 254 10^3/uL (130-400); Red Blood Cell Count 4.23 10^6/uL (4.70-6.10); Red Cell Dist. Width 16.6 % (11.5-14.5); White Blood Cell Count 6.7 10^3/uL (4.8-10.8)
[2024-10-02 05:47] LABS: Troponin I 0.023 ng/ml
[2024-10-02 05:49] LABS: Blood Urea Nitrogen 34 mg/dl (9-20); Calcium 8.4 mg/dl (8.4-10.2); Carbon Dioxide 17 mmol/L (22-30); Chloride 111 mmol/L (98-107); Estimated Creatinine Clearance 46 ml/min; Glucose 102 mg/dl (70-99); Potassium 4.1 mmol/L (3.5-5.1); Sodium 139 mmol/L (135-145); eGFR 48.11
--- NOTE | 2024-10-02 08:12 | PTCARENOTE ---
Rec'd pt at 0700. Pt AAOx3, ambulates in room, sits OOB in chair. Monitor SR with PVCs. Lungs CTA. +BS, abd soft/nt. Vdg in bathroom. Left leg aquacells C/D/I, +palpable pulses. Leg pink and warm.
[2024-10-02] MEDS: ELIQUIS 5 MG PO ×2 (08:21→19:59)
[2024-10-02] MEDS: DELTASONE 4 MG PO (08:21)
[2024-10-02] MEDS: ISORDIL 10 MG PO ×3 (08:21→22:24)
[2024-10-02] MEDS: COZAAR 75 MG PO (08:21)
[2024-10-02] MEDS: TOPROL XL 200 MG PO (08:21)
[2024-10-02] MEDS: NORVASC 10 MG PO (08:21)
--- NOTE | 2024-10-02 08:57 | W.PN.CD ---
Today's Communication / Plan
-
- continue to monitor on tele on Beta grady
will reassess Friday
Impression / Plan
-
NSVT - 14 beat run 10/01/23 on tele today while sitting.
- asymptomatic.
- no recurrence.
- echo with mild global HK and estimated EF 45-50%
- continue tomonitor on tele on Betablocker
PAD - s/p open surgical repair of left popliteal artery aneurysm with medial exclusion/bypass using ipsilateral nonreversed greater saphenous vein conduit.
- per vascular surgery.
Aflutter - stable in NSR.
- denies palpitations.
- on Eliquis (last dose was 09/27/24 evening) held for vascular surgery. Eliquis resumed 10/01/24.
CKD 3b - stable.
- followed by Dr. Fall.
Cardiomyopathy - prior CM which resolved. Most recetn echo with susected mildly reduced LVF with EF 45-50%r
- continue current medical therapy
- would repeat assessemtn for CAD will assess timing
Physical Exam
Vital Signs/Labs
Vital Signs
Temp Pulse Resp BP Pulse Ox
97.5 F 63 17 130/83 96
10/02/24 07:32 10/02/24 08:00 10/02/24 08:00 10/02/24 08:00 10/02/24 03:37
10/01/24 10/02/24 10/03/24
06:59 06:59 06:59
Actual Weight 80.6 kg 78.9 kg
10/02/24 04:50
10/02/24 04:50
PT 14.8 Sec (11.4-14.6) H 10/01/24 04:23
INR 1.10 10/01/24 04:23
APTT 34.4 Sec (23.4-35.0) 10/01/24 04:23
Magnesium 2.0 mg/dl (1.6-2.3) 10/01/24 04:23
LAB Results
10/01/24 10/02/24
17:59 04:50
Troponin I 0.026 0.023
Physical Exam
Constitutional: No acute distress
Cardiovascular: Rhythm & rate is regular
Respiratory: Respiratory effort normal
GI: Soft
Neuro/Psych: Alert
Data Reviewed
-
Date of Service: October 02, 2024
Medical Decision Making: Reviewed Test Results
EKG: Report Reviewed by me
Medical Tests (PFT, Pathology etc): Report Reviewed by me
Labs: Labs Reviewed by me
--- NOTE | 2024-10-02 09:10 | W.PN.VS ---
Today's Communication / Plan
-
f/u cards
Assessment/Plan
-
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
Plan:
Continue neurovascular checks
OOB to chair with progression to ambulation as tolerated
PT evaluation
c/w eliquis
f/u Cards recs
Continue to encourage incentive spirometry
Subjective Data
-
Date of Service: October 02, 2024
Pt resing comfortably in chair. NAEO. No further episodes of Vtach. Palpable DP
Objective Data
-
Vital Signs
Temp Pulse Resp BP Pulse Ox
97.5 F 63 17 130/83 96
10/02/24 07:32 10/02/24 08:00 10/02/24 08:00 10/02/24 08:00 10/02/24 03:37
Intake and Output
10/01/24 10/02/24 10/03/24
06:59 06:59 06:59
Intake Total 3680 / 3680 800 / 800
Output Total 2385 / 2385 1135 / 1135
Balance 1295 / 1295 -335 / -335
Intake:
Oral fluids 2040 / 2040 720 / 720
IV fluids (Total) 1640 / 1640 80 / 80
NSS 1640 / 1640 80 / 80
Output:
Urine, Stubbs 2385 / 2385 260 / 260
Urine, Voided 875 / 875
Lab Results
10/02/24 04:50
10/02/24 04:50
Calcium 8.4 mg/dl (8.4-10.2) 10/02/24 04:50
Magnesium 2.0 mg/dl (1.6-2.3) 10/01/24 04:23
Physical Exam
-
LLE: incisions C/D/I; +2 DP
--- NOTE | 2024-10-02 12:12 | PTCARENOTE ---
No changes in assessment, pt ambulating in room. Pt placed on tele pack to be able to ambulate in hallways.
--- NOTE | 2024-10-02 16:21 | PTCARENOTE ---
Pt OOB in chair throughout shift, denies any pain in leg. States he only has some discomfort at incision near knee when bending his leg. Not requiring any PRN pain meds. Per pt request, discussed care of incision after discharge, pt verbalizes
understanding.
--- NOTE | 2024-10-02 20:00 | PTCARENOTE ---
Received pt sitting in chair, AAOx3, without complaints. GARCIA, ambulating in room independently. SR on tele, HR 70s. On tele pack. BP 140s/90s. Afebrile. LLE with aquacells x2 c/d/i. Neurovascular checks Q4h ongoing- see worklist. On RA. Lungs CTA. +
bowel sounds. Voiding in bathroom. Call conrad in reach.
[2024-10-02] MEDS: MELATONIN 10 MG PO (22:24)
[2024-10-03] VITALS (15 sets, daily range): BP systolic 111–146; BP diastolic 76–97; BMI 27.2
--- NOTE | 2024-10-03 | PTCARENOTE ---
Pt reassessed. No changes. Got himself back to bed, melatonin given.
[2024-10-03 03:56] LABS: Hematocrit 34.2 % (39.0-52.0); Mean Corp Hgb Conc. 32.2 g/dL (33.0-37.0); Mean Corpuscular Hgb 26.3 pg (27.0-31.0); Mean Corpuscular Volume 81.6 fL (80.0-94.0); Mean Platelet Volume 9.1 fL (7.4-10.4); Platelet Count 253 10^3/uL (130-400); Red Blood Cell Count 4.19 10^6/uL (4.70-6.10); Red Cell Dist. Width 16.4 % (11.5-14.5); White Blood Cell Count 7.9 10^3/uL (4.8-10.8)
[2024-10-03 04:15] LABS: Blood Urea Nitrogen 32 mg/dl (9-20); Calcium 8.7 mg/dl (8.4-10.2); Carbon Dioxide 19 mmol/L (22-30); Chloride 107 mmol/L (98-107); Estimated Creatinine Clearance 41 ml/min; Glucose 138 mg/dl (70-99); Potassium 4.3 mmol/L (3.5-5.1); Sodium 137 mmol/L (135-145); eGFR 41.77
--- NOTE | 2024-10-03 07:35 | W.PN.CD ---
Today's Communication / Plan
-
continue to observe
due to recurrent NSVT on BB and mildly reduced LVF would plan for assessemnt of CAD tomorrow.
addtional review with vascular in this patient that is post op
Impression / Plan
-
NSVT - 14 beat run 10/01/23 on tele today while sitting.
- asymptomatic.
- 7 beat run 10/02/23 while on BB
- echo with mild global HK and estimated EF 45-50%
- continue to monitor on tele on Betablocker
- additonal assessmentof CAD on Friday
PAD - s/p open surgical repair of left popliteal artery aneurysm with medial exclusion/bypass using ipsilateral nonreversed greater saphenous vein conduit.
- per vascular surgery.
Aflutter - stable in NSR.
- denies palpitations.
- on Eliquis (last dose was 09/27/24 evening) held for vascular surgery. Eliquis resumed 10/01/24.
CKD 3b - stable.
- followed by Dr. Fall.
Cardiomyopathy - prior CM which resolved. Most recetn echo with susected mildly reduced LVF with EF 45-50%
- continue current medical therapy
- additional assessment for CAD
Physical Exam
Vital Signs/Labs
Vital Signs
Temp Pulse Resp BP Pulse Ox
98.2 F 66 17 126/87 96
10/03/24 03:20 10/03/24 06:00 10/02/24 10:00 10/03/24 06:00 10/02/24 20:00
10/02/24 10/03/24 10/04/24
06:59 06:59 06:59
Actual Weight 78.9 kg 81 kg
10/03/24 03:28
10/03/24 03:28
PT 14.8 Sec (11.4-14.6) H 10/01/24 04:23
INR 1.10 10/01/24 04:23
APTT 34.4 Sec (23.4-35.0) 10/01/24 04:23
Magnesium 2.0 mg/dl (1.6-2.3) 10/01/24 04:23
LAB Results
10/01/24 10/02/24
17:59 04:50
Troponin I 0.026 0.023
Physical Exam
Constitutional: No acute distress
Cardiovascular: Rhythm & rate is regular
Respiratory: Lungs clear to auscul.
GI: Soft
Neuro/Psych: Alert
Data Reviewed
-
Date of Service: October 03, 2024
Medical Decision Making: Reviewed Test Results
Medical Tests (PFT, Pathology etc): Report Reviewed by me
Labs: Labs Reviewed by me
[2024-10-03] MEDS: TOPROL XL 200 MG PO (08:06)
[2024-10-03] MEDS: NORVASC 10 MG PO (08:06)
[2024-10-03] MEDS: ELIQUIS 5 MG PO ×2 (08:06→19:30)
[2024-10-03] MEDS: COZAAR 75 MG PO (08:06)
[2024-10-03] MEDS: ISORDIL 10 MG PO ×3 (08:06→22:13)
[2024-10-03] MEDS: DELTASONE 4 MG PO (08:06)
--- NOTE | 2024-10-03 08:07 | PTCARENOTE ---
Rec'd pt at 0700. Pt AAOx3. Ambulates in room. Monitor SR with PVC's. Left leg with aquacells intact. +palpable pulses, foot pink and warm. Pt denies any pain.
--- NOTE | 2024-10-03 09:22 | W.PN.VS ---
Today's Communication / Plan
-
no changes
Assessment/Plan
-
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
Plan:
Continue neurovascular checks
OOB to chair with progression to ambulation as tolerated
PT evaluation
c/w eliquis
cards to stress vs cath tomorrow
Continue to encourage incentive spirometry
Subjective Data
-
Date of Service: October 03, 2024
NAEO. No further episodes of tachycardia
Objective Data
-
Vital Signs
Temp Pulse Resp BP Pulse Ox
97.4 F 76 17 146/94 96
10/03/24 08:15 10/03/24 08:00 10/02/24 10:00 10/03/24 08:00 10/02/24 20:00
Intake and Output
10/02/24 10/03/24 10/04/24
06:59 06:59 06:59
Intake Total 800 / 800 360 / 360
Output Total 1135 / 1135 1000 / 1000
Balance -335 / -335 -640 / -640
Intake:
Oral fluids 720 / 720 360 / 360
IV fluids (Total) 80 / 80
NSS 80 / 80
Output:
Urine, Stubbs 260 / 260
Urine, Voided 875 / 875 1000 / 1000
Other:
Number of approximated LARGE 2
amounts of urine
Lab Results
10/03/24 03:28
10/03/24 03:28
Calcium 8.7 mg/dl (8.4-10.2) 10/03/24 03:28
Magnesium 2.0 mg/dl (1.6-2.3) 10/01/24 04:23
Physical Exam
-
Left Leg: Incisions c/d/i; palpable DP
--- NOTE | 2024-10-03 13:18 | PTCARENOTE ---
Pt ambulating in room. Left leg dressing was removed by Marcos GARCIA this am, incision sites approx with surgical adhesive intact. Assessment unchanged.
--- NOTE | 2024-10-03 20:00 | PTCARENOTE ---
Received pt resting in bed, AAOx3, without complaints. GARCIA, ambulating in room independently. SR on tele, HR 70-80s. On tele pack. BP 120s/80s. Afebrile. 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 +1 edema to LLE. Leg soft, pink, warm. Elevated leg
on pillow. Neurovascular checks Q4h ongoing- see worklist. On RA. Lungs CTA. + bowel sounds. Voiding in bathroom. Call conrad in reach.
[2024-10-03] MEDS: MELATONIN 10 MG PO (22:13)
[2024-10-04] VITALS (22 sets, daily range): BP systolic 102–131; BP diastolic 72–97; BMI 27.1
--- NOTE | 2024-10-04 01:21 | PTCARENOTE ---
Pt reassessed - pt. without complaints. New L AC #22 placed.
--- NOTE | 2024-10-04 03:00 | PTCARENOTE ---
Pt. OOB to bathroom, HR noted to be 130 on tele, ST. Pt. asymptomatic. Returned to bed without difficulty, HR improved back to 80s. BP stable.
--- NOTE | 2024-10-04 04:01 | PTCARENOTE ---
No changes overnight. AM labs drawn. Vitals stable
[2024-10-04 04:05] LABS: Hematocrit 32.8 % (39.0-52.0); Hemoglobin 10.9 g/dL (13.0-18.0); Mean Corp Hgb Conc. 33.2 g/dL (33.0-37.0); Mean Corpuscular Hgb 26.7 pg (27.0-31.0); Mean Corpuscular Volume 80.4 fL (80.0-94.0); Mean Platelet Volume 9.2 fL (7.4-10.4); Platelet Count 262 10^3/uL (130-400); Red Blood Cell Count 4.08 10^6/uL (4.70-6.10); Red Cell Dist. Width 16.2 % (11.5-14.5); White Blood Cell Count 8.8 10^3/uL (4.8-10.8)
[2024-10-04 04:28] LABS: Blood Urea Nitrogen 31 mg/dl (9-20); Calcium 8.5 mg/dl (8.4-10.2); Carbon Dioxide 17 mmol/L (22-30); Chloride 106 mmol/L (98-107); Estimated Creatinine Clearance 43 ml/min; Glucose 133 mg/dl (70-99); Potassium 4.1 mmol/L (3.5-5.1); Sodium 134 mmol/L (135-145); eGFR 44.74
[2024-10-04] MEDS: DELTASONE 4 MG PO (07:31)
[2024-10-04] MEDS: TOPROL XL 200 MG PO (07:31)
[2024-10-04] MEDS: ELIQUIS 5 MG PO (07:32)
[2024-10-04] MEDS: ISORDIL 10 MG PO ×3 (07:32→22:15)
[2024-10-04] MEDS: COZAAR 75 MG PO (07:32)
[2024-10-04] MEDS: NORVASC 10 MG PO (07:32)
--- NOTE | 2024-10-04 07:42 | PTCARENOTE ---
Received pt @ change of shift. AAOx3, denies pain. LLE neurovascular check maintained per orders- see flow sheet. SR w PVC's on monitor. +1 LLE edema. Palpable weak L pedal pulse; palpable R pedal pulse. Auscultated clear breath sounds. +BS, NPO
status d/t possible heart cath today. Cont b/b. L leg incision x2 w surgical glue, approximated. # 22 L AC patent, dressing c/d/i. Call conrad remains w in reach.
--- NOTE | 2024-10-04 08:00 | W.PN.VS ---
Addendum entered and electronically signed by Kadeem Jacobsen MD 10/04/24 08:28:
Seen and examined with FÉLIX Dee. Agree with findings as noted below. Patient is without complaints himself. On exam his left lower extremity thigh and calf incisions are clean dry and intact. No hematomas. Calf and thighs are soft. Excellent
graft function with 2+ palpable graft pulse and 2+ palpable DP pulse on foot. Foot is warm. Plan/as discussed and noted below. Will await cardiology recommendations regarding V. tach episodes and any further workup.
Original Note:
Today's Communication / Plan
-
Patient seen and examined at bedside with Dr. Kadeem Jacobsen, below plan reviewed with attending.
Assessment/Plan
-
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
Plan:
Continue neurovascular checks
OOB to chair with progression to ambulation as tolerated
PT evaluation
c/w eliquis
Awaiting cardiology recommendations for stress first cath and clearance for discharge
Continue to encourage incentive spirometry
Subjective Data
-
Date of Service: October 04, 2024
Patient seen and examined at bedside, offers no complaints. Reports well-managed postoperative pain. Reports tolerating p.o. diet. Eager for discharge to home once cleared by cardiology.
Objective Data
-
Vital Signs
Temp Pulse Resp BP Pulse Ox
98.3 F 93 17 127/97 95
10/04/24 06:51 10/04/24 07:32 10/02/24 10:00 10/04/24 07:32 10/04/24 03:45
Intake and Output
10/03/24 10/04/24 10/05/24
06:59 06:59 06:59
Intake Total 360 / 360 1320 / 1320
Output Total 1700 / 1700
Balance -1340 / -1340 1320 / 1320
Intake:
Oral fluids 360 / 360 1320 / 1320
Output:
Urine, Voided 1700 / 1700
Other:
Number of approximated MODERATE 2
amounts of urine
Number of approximated LARGE 2 1
amounts of urine
Lab Results
10/04/24 03:37
10/04/24 03:37
Calcium 8.5 mg/dl (8.4-10.2) 10/04/24 03:37
Magnesium 2.0 mg/dl (1.6-2.3) 10/01/24 04:23
Physical Exam
-
No apparent distress, resting in bed comfortably
No tachycardia at rest but did note tachycardia to 120s with ambulation
No dyspnea on room air
Left lower extremity surgical incision well-approximated with Exofin glue intact, no evidence of hematoma, all surrounding compartments soft, no swelling
Left foot warm, palpable DP and PT pulse +2
--- NOTE | 2024-10-04 09:19 | W.PN.CD ---
Today's Communication / Plan
-
reviewed issues with Dr Jacobsen and interventional will start ASA today
hjold Eliquis tomorrow morning
cath tomorrow
Impression / Plan
-
NSVT - 14 beat run 10/01/23 on tele today while sitting.
- asymptomatic.
- 7 beat run 10/02/23 while on BB
- echo with mild global HK and estimated EF 45-50%
- continue to monitor on tele on Betablocker
- additonal assessmentof CAD with cath 10/05/23
- start ASA
- will hold Elqiquis in AM
PAD - s/p open surgical repair of left popliteal artery aneurysm with medial exclusion/bypass using ipsilateral nonreversed greater saphenous vein conduit.
- per vascular surgery.
Aflutter - stable in NSR.
- denies palpitations.
- on Eliquis (last dose was 09/27/24 evening) held for vascular surgery. Eliquis resumed 10/01/24.
CKD 3b - stable.
- followed by Dr. Fall.
Cardiomyopathy - prior CM which resolved. Most recetn echo with susected mildly reduced LVF with EF 45-50%
- continue current medical therapy
- additional assessment for CAD
Physical Exam
Vital Signs/Labs
Vital Signs
Temp Pulse Resp BP Pulse Ox
98.3 F 93 17 127/97 95
10/04/24 06:51 10/04/24 07:32 10/02/24 10:00 10/04/24 07:32 10/04/24 03:45
10/03/24 10/04/24 10/05/24
06:59 06:59 06:59
Actual Weight 81 kg 80.8 kg
10/04/24 03:37
10/04/24 03:37
PT 14.8 Sec (11.4-14.6) H 10/01/24 04:23
INR 1.10 10/01/24 04:23
APTT 34.4 Sec (23.4-35.0) 10/01/24 04:23
Magnesium 2.0 mg/dl (1.6-2.3) 10/01/24 04:23
LAB Results
10/01/24 10/02/24
17:59 04:50
Troponin I 0.026 0.023
Physical Exam
Constitutional: No acute distress
Cardiovascular: Rhythm & rate is regular
Respiratory: Wheeze Absent and Rhonchi Absent
GI: Soft and Non tender
Neuro/Psych: Alert
Data Reviewed
-
Date of Service: October 04, 2024
Medical Decision Making: Reviewed Test Results
Medical Tests (PFT, Pathology etc): Report Reviewed by me
Labs: Labs Reviewed by me
[2024-10-04] MEDS: ASPIRIN ENTERIC COATED 325 MG PO (10:03)
--- NOTE | 2024-10-04 13:30 | CM ---
CM following re: discharger planning.
Reviewed pt's chart, met with pt.
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
Pt lives alone in a condo, no steps, has supportive sister and her family. Pt is independent in all areas [employer] TE[employer], retired. No DME, VN or SNF history.
PT and OT evaluations noted - pt has no skilled PT/OT needs, independent with functional ability.
D/C plan: home no needs. Sister to transport at discharge.
CM will follow with discharge plan updates as needed.
--- NOTE | 2024-10-04 14:50 | PTCARENOTE ---
pt. reassessed, no changes since previous assessment. Pt. OOB to chair x few hours; ad isabella in rm on tele pack. Plan for cardiac cath tomorrow. Able to make needs know and call conrad remains w in reach.
--- NOTE | 2024-10-04 20:01 | PTCARENOTE ---
Addendum entered by Kendy Bell RN 10/04/24 20:47:
Pt transferred to IVU room 2253 via wheelchair at approx 2030, all belongings sent with patient. Pt placed on tele pack in IVU.
Original Note:
Assumed care of pt at 1900. Pt is A/O x4, pleasant and cooperative with care. Pt OOB to chair at start of shift, ambulates independently around room. No c/o pain. Currently IVU level of care and will be transferring there this evening. SR 90s on
monitor. See nursing shift assessment flowsheet for full physical assessment details.
--- NOTE | 2024-10-04 21:41 | PTCARENOTE ---
pt received from icu via wheelchair, pt oriented to new room. pt seen and assessed in room, aox3, tele reading nsr with monomorphic pvcs. VS WNL. No complaints of pain at this time. This RN explained POC to pt, pt. verbalizes understanding. Call
conrad within reach. Continuing to monitor at this time.
[2024-10-04] MEDS: MELATONIN 10 MG PO (22:15)
[2024-10-04 22:16] LABS: Glucose - Point of Care 137 mg/dl (70-99)
[2024-10-05] VITALS (16 sets, daily range): BP systolic 106–137; BP diastolic 65–89; PULSE 78; O2SAT 98; BMI 26.8
[2024-10-05] MEDS: LOW STRENGTH ASPIRIN 81 MG PO (07:55)
[2024-10-05] MEDS: NORVASC 10 MG PO (07:55)
[2024-10-05] MEDS: COZAAR 75 MG PO (07:55)
[2024-10-05] MEDS: ISORDIL 10 MG PO ×3 (07:56→21:02)
[2024-10-05] MEDS: TOPROL XL 200 MG PO (07:56)
[2024-10-05] MEDS: DELTASONE 4 MG PO (08:01)
--- NOTE | 2024-10-05 09:00 | W.PN.VS ---
Today's Communication / Plan
-
See below.
Assessment/Plan
-
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
Plan:
Continue neurovascular checks
Continue PT
Holding Eliquis for cardiac cath today
Continue to encourage incentive spirometry
Subjective Data
-
Date of Service: October 05, 2024
Patient seen and examined at bedside, offers no complaints. Reports adequate post operative pain management, plan for cardiac cath today.
Objective Data
-
Vital Signs
Temp Pulse Resp BP Pulse Ox
98.6 F 75 16 111/82 98
10/05/24 11:31 10/05/24 11:20 10/05/24 11:31 10/05/24 11:20 10/05/24 11:31
Intake and Output
10/04/24 10/05/24 10/06/24
06:59 06:59 06:59
Intake Total 1320 / 1320 680 / 680
Balance 1320 / 1320 680 / 680
Intake:
Oral fluids 1320 / 1320 680 / 680
Other:
Number of approximated MODERATE 2 2
amounts of urine
Number of approximated LARGE 1
amounts of urine
Lab Results
10/04/24 03:37
10/04/24 03:37
Calcium 8.5 mg/dl (8.4-10.2) 10/04/24 03:37
Magnesium 2.0 mg/dl (1.6-2.3) 10/01/24 04:23
Physical Exam
-
No apparent distress, resting in bed comfortably
No tachycardia
No dyspnea on room air
Left lower extremity surgical incision well-approximated with Exofin glue intact, no evidence of hematoma, all surrounding compartments soft, no swelling
Left foot warm, palpable DP and PT pulse +2
--- NOTE | 2024-10-05 10:18 | PTCARENOTE ---
Rec'd pt at handoff. AAOx3, denies pain. Tele- SR w PVC's on monitor. LLE neurovascular check maintained per orders- see flow sheet. +1 LLE edema. Palpable weak L pedal pulse; palpable R pedal pulse. L leg incision x2 w surgical glue, approximated.
Pt aware of NPO status d/t cardiac cath. Call anamaria w/in reach.
--- NOTE | 2024-10-05 14:35 | ITS.CL.PN ---
Striker Out - Procedure Note
Procedure
Procedure Note:
CARDIAC CATHETERIZATION REPORT
Date of Procedure: 10/05/2024
Referring: Dr. Dheeraj Murray MD
Indication: NSVT
PROCEDURE(S)
1. left heart catheterization
2. coronary angiography
ACCESS: 6F right radial artery (closure: radial band)
CATHETERS
1. 6F JR4
2. 6F JL3.5
MODERATE SEDATION: 25 minutes of moderate sedation was utilized. An independent medical facilities section director was present to assist with and help manage the patient's level of consciousness and physiologic status.
ULTRASOUND GUIDED VASCULAR ACCESS (right radial artery): Ultrasound was utilized for vascular access. The vessel was visualized under ultrasound and noted to be patent. An image of the vessel was stored permanently in the patient's medical record.
Under direct ultrasound guidance, vascular access was obtained using a modified Seldinger technique and a 6 Spanish sheath was placed.
HEMODYNAMIC DATA
LV 105/5 (EDP 9) mmHg
AO 115/78 (mean 92) mmHg
CORONARY ANGIOGRAPHY
Dominance: right
LM: Large with mild disease
LAD: Large caliber vessel giving rise to a moderate caliber D1, small D2, and large D3. There is a 80% ostial stenosis in the D2, and an eccentric 50% stenosis in the mid body of the D3. The LAD proper has only mild diffuse disease other than the
very apical LAD which has a high-grade stenosis.
LCx: Large vessel giving rise to a small OM1, large OM 2, moderate caliber OM 3, and small caliber LPL branch. There is a high-grade stenosis in the proximal aspect of the LPL branch and otherwise mild diffuse disease.
RCA: Large, patulous, and tortuous vessel that gives rise to a large caliber RPDA and small RPL system. There is a 30% stenosis in the proximal vessel, a ~70% stenosis in the proximal aspect of the RPDA with LILIA-3 flow distally, and diffuse
moderate disease in the small RPL system.
RADIATION: dose 519 mGy; DAP 36 Gy*cm2; fluoroscopy time 3.1 min
CONCLUSIONS
1. diffuse moderate to severe branch vessel coronary artery disease that is non-critical and [id number]
2. normal LV filling pressure and no aortic stenosis
RECOMMENDATIONS
1. expectant management after cardiac catheterization via right radial approach
2. aggressive secondary prevention of coronary artery disease
3. continue aspirin and Eliquis
4. continue beta-blockade
5. outpatient residential monitor to assess for NSVT burden
Copy to: Dr. Dheeraj Murray MD (aeronautical project engineer); Dr. Ameya Velázquez MD (PCP)
Signed: Tashi Santacruz MD, PhD
--- NOTE | 2024-10-05 14:56 | W.PN.UPDATE ---
Update Note
Progress Note Update
Spoke with cardiology patient status post diagnostic cardiac cath. Cardiology plans to place heart monitor tomorrow in their office at 8:40 AM. Patient will be cleared for discharge before that time. Patient and family aware and agreeable.
Nursing staff aware patient to be discharged prior to 8:40 AM appointment.
[2024-10-05] MEDS: ELIQUIS 5 MG PO (21:02)
[2024-10-05] MEDS: MELATONIN 10 MG PO (21:02)
--- NOTE | 2024-10-06 00:32 | PTCARENOTE ---
Received patient at change of shift. SR on the monitor, HR in the 70s. R radial site dressing CDI, ecchymotic. No complaints from pt at this time, call conrad within reach.
--- NOTE | 2024-10-06 02:07 | DOWNTIME ---
There was a [employer] Client Hr Receptionist Downtime on 10/06/2024 from 0100 to 10/06/2023 at 0205 . Downtime documentation of patient's care, including medication administrations, has been reconciled in the electronic record per guidelines. Refer to the
patient's paper chart under the miscellaneous tab to see printed paper medication records and downtime forms.
[2024-10-06 04:56] VITALS: BP 119/74
[2024-10-06 05:49] LABS: Hematocrit 31.3 % (39.0-52.0); Hemoglobin 10.1 g/dL (13.0-18.0); Mean Corp Hgb Conc. 32.3 g/dL (33.0-37.0); Mean Corpuscular Hgb 25.8 pg (27.0-31.0); Mean Corpuscular Volume 80.1 fL (80.0-94.0); Mean Platelet Volume 9.2 fL (7.4-10.4); Platelet Count 292 10^3/uL (130-400); Red Blood Cell Count 3.91 10^6/uL (4.70-6.10); Red Cell Dist. Width 16.4 % (11.5-14.5); White Blood Cell Count 8.6 10^3/uL (4.8-10.8)
[2024-10-06 06:25] LABS: Blood Urea Nitrogen 42 mg/dl (9-20); Calcium 8.4 mg/dl (8.4-10.2); Carbon Dioxide 17 mmol/L (22-30); Chloride 106 mmol/L (98-107); Estimated Creatinine Clearance 35 ml/min; Glucose 109 mg/dl (70-99); Potassium 4.3 mmol/L (3.5-5.1); Sodium 134 mmol/L (135-145); eGFR 34.72
--- NOTE | 2024-10-06 06:43 | PTCARENOTE ---
Discharged expected for 8am. Patient requests to take his morning medications at home. Discharge packed completed and discharge education provided. Patient verbalizes understanding of discharge instructions, wound care, and medication list.
Discharge will be completed by dayshift.
--- NOTE | 2024-10-06 07:26 | W.PN.VS ---
Addendum entered and electronically signed by Kadeem Jacobsen MD 10/06/24 10:00:
Seen and examined with FÉLIX Becerra. Agree with findings as noted below. No significant complaints or events. Left lower extremity incisions all clean dry and intact. 2+ graft pulse palpable. 1+/2+ distal SUZETTE/proximal DP pulse palpable. Foot
warm. Plan/as discussed and noted below.
Original Note:
Today's Communication / Plan
-
Seen and assessed with Dr. Jacobsen
Assessment/Plan
-
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
Plan:
Ready for discharge this a.m. Will go straight to cardiology office for heart monitor placement
Subjective Data
-
Date of Service: October 06, 2024
Patient seen at bedside exam with Dr. Jacobsen. Patient sitting out of bed to the chair. Offers no complaints at this time. No events overnight.
Objective Data
-
Vital Signs
Temp Pulse Resp BP Pulse Ox
98.4 F 80 18 122/80 99
10/05/24 22:48 10/05/24 22:47 10/05/24 22:48 10/05/24 22:47 10/05/24 22:48
Intake and Output
10/05/24 10/06/24 10/07/24
06:59 06:59 06:59
Intake Total 680 / 680 760 / 760
Balance 680 / 680 760 / 760
Intake:
Oral fluids 680 / 680 400 / 400
IV fluids (Total) 360 / 360
normal saline 360 / 360
Other:
Number of approximated MODERATE 2 2
amounts of urine
Lab Results
10/06/24 05:02
10/06/24 05:02
Calcium 8.4 mg/dl (8.4-10.2) 10/06/24 05:02
Magnesium 2.0 mg/dl (1.6-2.3) 10/01/24 04:23
Physical Exam
-
No apparent distress, resting in bed comfortably
No tachycardia
No dyspnea on room air
Left lower extremity surgical incision well-approximated with Exofin glue intact, no evidence of hematoma, all surrounding compartments soft, no swelling
Left foot warm, palpable DP and PT pulse +2
--- NOTE | 2024-10-06 07:40 | PTCARENOTE ---
Assumed care of pt from night RN. Pt received awake and alert, Ox3. VSS, CM shows NSR with occ PVC's. Right groin dsg MARY, remains CDI. Pt denies any pain or discomfort at this time. For D/C this am. Pt states he'will take his am meds when he
gets home'.
[2024-10-06 07:59] VITALS: BP 115/80
[2024-10-06 08:01] VITALS: BP 115/80
--- NOTE | 2024-10-06 08:03 | W.PN.CD ---
Today's Communication / Plan
-
Overall patient's condition is stable overnight.
Cath site fine
Continue current beta-grady dosing
Resume Eliquis. I believe last I spoke with Dr. Jacobsen plan was for Eliquis and aspirin 81 mg a day post vascular surgery.
Plan for outpatient account support rep as previously arranged by Dr. Lopez. Patient will of 2 weeks outpatient monitor
Will need to have follow-up to monitor renal function. Follow-up labs on Friday morning at [facility]
Impression / Plan
-
NSVT -
- asymptomatic.
- cath 10/05/23 moderate to severe diffuse branch vessel coronary artery disease. With plan for medical therapy
CAD. Cath is noted continue medical therapy
PAD - s/p open surgical repair of left popliteal artery aneurysm with medial exclusion/bypass using ipsilateral nonreversed greater saphenous vein conduit.
- per vascular surgery.
Aflutter - stable in NSR.
- denies palpitations.
- on Eliquis (last dose was 09/27/24 evening) held for vascular surgery. Eliquis resumed 10/01/24.
CKD 3b - stable.
- followed by Dr. Fall.
-Creatinine up to 2.1. Continue to monitor closely.
Cardiomyopathy - prior CM which resolved. Most recetn echo with susected mildly reduced LVF with EF 45-50%
- continue current medical therapy
- additional assessment for CAD
Physical Exam
Vital Signs/Labs
Vital Signs
Temp Pulse Resp BP Pulse Ox
98.2 F 89 20 115/80 98
10/06/24 07:59 10/06/24 07:59 10/06/24 07:59 10/06/24 07:59 10/06/24 07:59
10/05/24 10/06/24 10/07/24
06:59 06:59 06:59
Actual Weight 79.8 kg
10/06/24 05:02
10/06/24 05:02
PT 14.8 Sec (11.4-14.6) H 10/01/24 04:23
INR 1.10 10/01/24 04:23
APTT 34.4 Sec (23.4-35.0) 10/01/24 04:23
Magnesium 2.0 mg/dl (1.6-2.3) 10/01/24 04:23
Physical Exam
Constitutional: No acute distress
Cardiovascular: Pedal edema is absent
Respiratory: Respiratory effort normal
GI: Soft and Non tender
Neuro/Psych: Alert
Data Reviewed
-
Date of Service: October 06, 2024
Medical Decision Making: Reviewed Test Results
EKG: Report Reviewed by me
X-Ray/CT/US/MRI/NUC/PET: Report Reviewed by me
Medical Tests (PFT, Pathology etc): Report Reviewed by me
--- NOTE | 2024-10-06 08:47 | PTCARENOTE ---
All D/C info reviewed with pt and spouse, all questions answered. Pt d/c'd with spouse.
== END 2024-10-06 08:20 | disposition home or self-care (01) | DRG 253 ==
LOC: IVU 06:05
PROVIDERS: Nurse Practitioner; Nurse Practitioner Adult Health; Student in an Organized Health Care Education/Training Program; ADMITTING PHYSICIAN Surgery Vascular Surgery; CONSULT PHYSICIAN Internal Medicine Cardiovascular Disease; CONSULT PHYSICIAN Internal Medicine Critical Care Medicine; FAMILY PHYSICIAN Family Medicine
PROC: 041N09L Bypass Left Popliteal Artery to Popliteal Artery with Autologous Venous Tissue, Open Approach (ICD-10-PCS; 2024-09-30)
PROC: 4A023N7 Measurement of Cardiac Sampling and Pressure, Left Heart, Percutaneous Approach (ICD-10-PCS; 2024-10-05)
PROC: B211YZZ Fluoroscopy of Multiple Coronary Arteries using Other Contrast (ICD-10-PCS; 2024-10-05)
DX: I72.4 Aneurysm of artery of lower extremity (principal); E87.20 Acidosis, unspecified; I42.9 Cardiomyopathy, unspecified; I48.92 Unspecified atrial flutter; I47.20 Ventricular tachycardia, unspecified; I12.9 Hypertensive chronic kidney disease with stage 1 through stage 4 chronic kidney disease, or unspecified chronic kidney disease; E11.22 Type 2 diabetes mellitus with diabetic chronic kidney disease; E11.65 Type 2 diabetes mellitus with hyperglycemia; I77.82 Antineutrophilic cytoplasmic antibody [ANCA] vasculitis; I25.10 Atherosclerotic heart disease of native coronary artery without angina pectoris; N18.32 Chronic kidney disease, stage 3b; I34.0 Nonrheumatic mitral (valve) insufficiency; D63.1 Anemia in chronic kidney disease; E83.51 Hypocalcemia; M10.9 Gout, unspecified; Z79.01 Long term (current) use of anticoagulants; Z79.899 Other long term (current) drug therapy; Z79.52 Long term (current) use of systemic steroids
CPT/HCPCS: 35151; 36415; 71046; 76937; 80048; 82962; 83735; 84484; 85025; 85027; 85610; 85730; 86850; 86900; 86901; 93005; 93306; 93458; 97116; 97162; 97530; 99152; 99153; C1894; Q9967

== ENCOUNTER → 2024-10-08 09:47 | Outpatient (REF) | payer BC, SELFPAY ==
[2024-10-08 11:37] LABS: Blood Urea Nitrogen 34 mg/dl (9-20); Calcium 9.4 mg/dl (8.4-10.2); Carbon Dioxide 21 mmol/L (22-30); Chloride 104 mmol/L (98-107); Glucose 131 mg/dl (70-99); Phosphorus 3.7 mg/dl (2.5-4.5); Potassium 4.8 mmol/L (3.5-5.1); Sodium 138 mmol/L (135-145); eGFR 32.83
== END ==
LOC: REG 09:47
PROVIDERS: ATTENDING PHYSICIAN Internal Medicine Cardiovascular Disease; FAMILY PHYSICIAN Family Medicine
DX: I48.91 Unspecified atrial fibrillation (principal); I10 Essential (primary) hypertension
CPT/HCPCS: 36415; 80069

== ENCOUNTER 2024-11-02 11:43 | Emergency (ER) | payer BC, SELFPAY ==
[2024-11-02 11:51] VITALS: BP 163/95
[2024-11-02 13:14] LABS: % Basophils 0.3 % (0-2); % Eosinophils 1.2 % (0-6); % Immature Granulocytes 0.8 % (0-0.5); % Lymphocytes 4.5 % (20.5-51.1); % Monocytes 3.9 % (1.7-9.3); % Neutrophils 89.3 % (42.2-75.2); Absolute Eosinophils 0.2 10^3/uL (0-0.7); Absolute Immature Granulocytes 0.1 10^3/uL (0-0.05); Absolute Lymphocytes 0.7 10^3/uL (1.2-3.4); Absolute Monocytes 0.6 10^3/uL (0.1-0.6); Hemoglobin 11.4 g/dL (13.0-18.0); Mean Corp Hgb Conc. 31.7 g/dL (33.0-37.0); Mean Corpuscular Hgb 25.4 pg (27.0-31.0); Mean Corpuscular Volume 80.2 fL (80.0-94.0); Mean Platelet Volume 9.1 fL (7.4-10.4); Nucleated Red Blood Cells % 0 % (-); Platelet Count 339 10^3/uL (130-400); Red Blood Cell Count 4.49 10^6/uL (4.70-6.10); Red Cell Dist. Width 15.7 % (11.5-14.5); White Blood Cell Count 14.5 10^3/uL (4.8-10.8)
[2024-11-02 13:25] LABS: Blood Urea Nitrogen 33 mg/dl (9-20); Calcium 9.3 mg/dl (8.4-10.2); Carbon Dioxide 22 mmol/L (22-30); Chloride 103 mmol/L (98-107); Glucose 229 mg/dl (70-99); Potassium 4.8 mmol/L (3.5-5.1); Sodium 135 mmol/L (135-145); eGFR 39.15
--- NOTE | 2024-11-02 13:30 | ED.GENMED ---
History of Present Illness
<Gabe Gamboa Jr., PA-C - Last Filed: 11/02/24 15:19>
General
Chief Complaint: Skin Problem
Source: patient
Exam Limitations: none
Time Seen by Provider: 11/02/24 12:41
Nursing documentation reviewed up to this point in time: agreed with
History of Present Illness
History of Present Illness:
64-year-old male with past medical history of a flutter currently on Eliquis, CHF hypertension hyperlipidemia, popliteal artery aneurysm with repair 1 month ago presenting to the emergency department today with concerns of left leg redness swelling
warmth of the past month or so. Symptoms have been present since surgery 1 month ago. He was seen by the primary care doctor they were concerned for cellulitis and sent him to the ER for assessment. He has not been on any antibiotics denies any
systemic symptoms or fevers.
Past History
<Gabe Gamboa Jr., PA-C - Last Filed: 11/02/24 15:19>
Past History
ED Past Medical History: HTN, NIDDM and Renal failure
ED Past Surgical History: None
Social History
Tobacco: Non-smoker
Alcohol: Daily
Drug: None
Personal: Single
Living: with family
Employment: Employed
Review of Systems
<Gabe Gamboa Jr., PA-C - Last Filed: 11/02/24 15:19>
Review of Systems
Allergies reviewed?: Yes
All Other Systems: ROS reviewed and negative except as documented in HPI and ROS
Phy Exam
<Gabe Gamboa Jr., PA-C - Last Filed: 11/02/24 15:19>
Physical Exam
Physical Exam:
GENERAL: Alert , in no apparent distress
EYE: pupils equal and reactive
NECK: Supple, no significant adenopathy.
ENT: o/p clr, mmm.
CARDIAC: Regular rate and rhythm .
LUNGS: Clear breath sounds bilaterally, no acute respiratory distress, no wheezes/rales/rhonchi
ABDOMEN: Soft, without focal tenderness, no r/g, no cvat
NEUROLOGICAL: Alert and oriented, no focal neuro deficits
SKIN: Warm and dry, skin intact.
MUSCULOSKELETAL: Vague swelling distal to the left knee. There are some vague redness warmth to the area as well sparing the ankle foot and does not move proximal to the knee. Well perfused.
PSYCH: Normal and appropriate interaction.
Course
<Gabe Gamboa Jr., GISELLA-Sharda - Last Filed: 11/02/24 15:19>
Orders/Labs/Results
Orders:
Orders
11/02/24 12:46
Venous Doppler Lwr Ext Left [US Periph Venous LOWER Ext LT] Urgent
Comment:
Reason For Exam: swelling
11/02/24 12:59
BMP [Basic Metabolic Panel] Urgent
CBC/With Diff [Complete Blood Count/With Diff] Urgent
11/02/24 15:06
Cephalexin Monohydrate [Keflex] 500 mg PO NOW STA
Abnormal Lab Results
11/02/24
12:59
WBC 14.5 H 10^3/uL
(4.8-10.8)
RBC 4.49 L 10^6/uL
(4.70-6.10)
Hgb 11.4 L g/dL
(13.0-18.0)
Hct 36.0 L %
(39.0-52.0)
MCH 25.4 L pg
(27.0-31.0)
MCHC 31.7 L g/dL
(33.0-37.0)
RDW 15.7 H %
(11.5-14.5)
Abs Immat Gran (auto) 0.1 H 10^3/uL
(0-0.05)
Absolute Neuts (auto) 13.0 H 10^3/uL
(1.4-6.5)
Absolute Lymphs (auto) 0.7 L 10^3/uL
(1.2-3.4)
Immature Gran % 0.8 H %
(0-0.5)
Neutrophils % 89.3 H %
(42.2-75.2)
Lymphocytes % 4.5 L %
(20.5-51.1)
BUN 33 H mg/dl
(9-20)
Creatinine 1.9 H mg/dL
(0.7-1.3)
Glucose 229 H mg/dl
(70-99)
11/02/24 12:59
11/02/24 12:59
Vital Signs
Initial and Last Documented VS:
Initial Vital Signs
Temp Pulse Resp BP Pulse Ox
98.3 F 94 16 163/95 100
11/02/24 11:51 11/02/24 11:51 11/02/24 11:51 11/02/24 11:51 11/02/24 11:51
Last Documented Vital Signs
Temp Pulse Resp BP Pulse Ox
98.3 F 94 16 163/95 100
11/02/24 11:51 11/02/24 11:51 11/02/24 11:51 11/02/24 11:51 11/02/24 11:51
<Jae Reyes, DO - Last Filed: 11/02/24 14:47>
Orders/Labs/Results
Orders:
Orders
11/02/24 12:46
Venous Doppler Lwr Ext Left [US Periph Venous LOWER Ext LT] Urgent
Comment:
Reason For Exam: swelling
11/02/24 12:59
BMP [Basic Metabolic Panel] Urgent
CBC/With Diff [Complete Blood Count/With Diff] Urgent
11/02/24 15:06
Cephalexin Monohydrate [Keflex] 500 mg PO NOW STA
Abnormal Lab Results
11/02/24
12:59
WBC 14.5 H 10^3/uL
(4.8-10.8)
RBC 4.49 L 10^6/uL
(4.70-6.10)
Hgb 11.4 L g/dL
(13.0-18.0)
Hct 36.0 L %
(39.0-52.0)
MCH 25.4 L pg
(27.0-31.0)
MCHC 31.7 L g/dL
(33.0-37.0)
RDW 15.7 H %
(11.5-14.5)
Abs Immat Gran (auto) 0.1 H 10^3/uL
(0-0.05)
Absolute Neuts (auto) 13.0 H 10^3/uL
(1.4-6.5)
Absolute Lymphs (auto) 0.7 L 10^3/uL
(1.2-3.4)
Immature Gran % 0.8 H %
(0-0.5)
Neutrophils % 89.3 H %
(42.2-75.2)
Lymphocytes % 4.5 L %
(20.5-51.1)
BUN 33 H mg/dl
(9-20)
Creatinine 1.9 H mg/dL
(0.7-1.3)
Glucose 229 H mg/dl
(70-99)
11/02/24 12:59
11/02/24 12:59
Vital Signs
Initial and Last Documented VS:
Initial Vital Signs
Temp Pulse Resp BP Pulse Ox
98.3 F 94 16 163/95 100
11/02/24 11:51 11/02/24 11:51 11/02/24 11:51 11/02/24 11:51 11/02/24 11:51
Last Documented Vital Signs
Temp Pulse Resp BP Pulse Ox
98.3 F 94 16 163/95 100
11/02/24 11:51 11/02/24 11:51 11/02/24 11:51 11/02/24 11:51 11/02/24 11:51
<Gabe Gamboa Jr., PA-C - Last Filed: 11/02/24 15:19>
MDM/Problems Addressed
MDM/Problems Addressed:
64-year-old male presenting to the emergency department concerns of redness swelling warmth to the left benton region. Has been present for a month. Denies systemic symptoms or fevers. Vital signs showing elevated blood pressure otherwise normal
vital signs. White counts 14.5 patient does take daily prednisone. Otherwise labs at patient's baseline. Ultrasound without evidence of acute pathology. Case additionally seen by attending physician that agrees that this seems less likely to be
consistent with acute cellulitis. He could have a minor secondary cellulitis due to scratching but unlikely that the majority of symptoms are due to infection due to longevity of length of time symptoms have been present without significant
worsening or change. He was advised for close outpatient follow-up otherwise for started on antibiotics over the next week. Return precautions given.
<Gabe Gamboa Jr., PA-C - Last Filed: 11/02/24 15:19>
*Critical Care Note
Total Time (30-74mins, 75-104mins- exclusive of procedures): Not Applicable
ED Attending Note
<Gabe Gamboa Jr., PA-C - Last Filed: 11/02/24 15:19>
-
Portions of this chart may have been created with voice recognition software.� Occasional wrong word or��sound alike� substitutions may have occurred due to the inherent limitations of voice recognition software.
<Jae Reyes DO - Last Filed: 11/02/24 14:47>
ED Attending Note
Patient seen and examined by attending physician: Yes
I performed the substantive portion of visit, reviewed & personally made and approve the management plan that is documented in note by myself or LAVON.: Yes
ED Attending Note:
Seen with PA examined independently status post vascular surgery redness of the lower extremity nontoxic there is warmth with a pleuritic component perhaps venous stasis or dermatitis will treat with Keflex and some topical antifungals
Discharge Plan
Departure
Patient Disposition: Home (Routine Discharge)
Date of Disposition: 11/02/24
Time of Disposition: 15:16
Patient with high blood pressure during this ER visit?: Yes
Condition: Good
Covid-19: Not Applicable
Discharge Problem:
Redness and swelling of lower leg
Instructions: Skin Rash (DC), Cellulitis (Skin Infection), Adult (DC), BLOOD PRESSURE
Prescriptions:
New
cephalexin 500 mg capsule
500 mg PO QID 7 Days Qty: 28 0RF
No Action
metoprolol succinate 100 MG tablet extended release 24 hr
200 mg PO DAILY
isosorbide dinitrate 10 MG tablet
10 mg PO TID
Eliquis 5 MG tablet
5 mg PO BID
prednisone 20 MG tablet
4 mg PO DAILY
losartan 50 mg Tablet
75 mg PO DAILY
amlodipine 10 mg Tablet
10 mg PO DAILY
oxycodone 5 mg Tablet
5 mg PO Q4HPRN PRN (Reason: moderate pain) Qty: 10 0RF
aspirin 81 mg Tablet,Chewable
81 mg PO DAILY Qty: 90 0RF
Referrals:
Kadeem Jacobsen MD [Active] - Follow up in 5-7 days
Activity Restrictions/Additional Instructions:
You came to the emergency department today for concerns of redness swelling to your lower extremity. Your ultrasound did not show any signs of DVT. This could be chronic vascular changes. There is a possibility of a small secondary infection.
Please take the prescribed antibiotics and follow-up closely with your vascular doctor. Return for any worsening, new or concerning symptoms.
Interventions
Interventions:
*Risk Screen - Suicide Last Done: 11/02/24 11:51
*General Assessment Last Done: 11/02/24 11:51
*Neglect/Abuse Screening Last Done: 11/02/24 11:51
*ED COVID-19 Vaccine History Last Done: 11/02/24 13:17
Discharge Date and Time
Print Language: NEPALI
[2024-11-02] MEDS: KEFLEX 500 MG PO (15:15)
[2024-11-02 15:25] VITALS: BP 132/90
== END 2024-11-02 15:28 | disposition home or self-care (01) ==
LOC: EMR 11:43
PROVIDERS: Physician Assistant; EMERGENCY PHYSICIAN Emergency Medicine
DX: R22.42 Localized swelling, mass and lump, left lower limb (principal); R23.8 Other skin changes; I11.0 Hypertensive heart disease with heart failure; I50.9 Heart failure, unspecified; Z79.01 Long term (current) use of anticoagulants; E78.5 Hyperlipidemia, unspecified
CPT/HCPCS: 99284; 80048; 85025; 93971

== ENCOUNTER → 2024-11-16 12:47 | Outpatient (REF) | payer BC, SELFPAY | LOC: RAD 12:47 | PROVIDERS: ATTENDING PHYSICIAN Registered Nurse; FAMILY PHYSICIAN Family Medicine | DX: I72.4 Aneurysm of artery of lower extremity (principal) | CPT/HCPCS: 93922; 93925 ==

== ENCOUNTER 2024-12-01 08:53 | Day surgery (SDC) | payer BC, SELFPAY ==
[2024-12-01 08:53] LABS: Glucose - Point of Care 137 mg/dl (70-99)
== END 2024-12-01 10:27 | disposition home or self-care (01) ==
LOC: GI 08:53
PROVIDERS: ATTENDING PHYSICIAN Internal Medicine Gastroenterology
DX: Z12.11 Encounter for screening for malignant neoplasm of colon (principal); K63.89 Other specified diseases of intestine; K51.50 Left sided colitis without complications; K62.89 Other specified diseases of anus and rectum; K64.8 Other hemorrhoids; R19.4 Change in bowel habit
CPT/HCPCS: 45380; 88305; 82962

== ENCOUNTER → 2025-05-26 13:34 | Outpatient (REF) | payer BC, SELFPAY | LOC: RAD 13:34 | PROVIDERS: ATTENDING PHYSICIAN Surgery Vascular Surgery; FAMILY PHYSICIAN Family Medicine | DX: I72.4 Aneurysm of artery of lower extremity (principal) | CPT/HCPCS: 93922; 93925 ==

== ENCOUNTER 2025-06-09 15:04 | Inpatient (IN) | payer BC, SELFPAY ==
[2025-06-09 11:42] VITALS: BP 126/89; BMI 25.7
--- NOTE | 2025-06-09 12:16 | ED.GENMED ---
History of Present Illness
General
Chief Complaint: Skin Problem
Source: patient
Exam Limitations: none
Time Seen by Provider: 06/09/25 11:56
Nursing documentation reviewed up to this point in time: agreed with
History of Present Illness
History of Present Illness:
Note:
CHIEF COMPLAINT(S)
Increase in leg discoloration due to cellulitis.
HISTORY OF PRESENT ILLNESS
The patient is a 65-year-old male with a history of vascular bypass surgery, specifically involving the popliteal artery performed by Dr. Jacobsen, and currently under treatment for cellulitis of the leg, diagnosed by the primary care system last Friday.
The patient reports worsening discoloration of the leg, which appears more red than before, although they note that in some areas the skin is reverting to a more normal color. The patient is on cefalexin, 500 mg, taken four times daily and has been
on this antibiotic for about a week. There has been no reported increase in the size of the affected area. The patient does not report having a fever at the moment.
PAST MEDICAL AND SURIGICAL HISTORY
The patient has a history of vascular bypass surgery involving the popliteal artery.
EXTERNAL RECORDS REVIEWED
The patient mentions being diagnosed with cellulitis by a primary care provider last Friday and is currently on cefalexin, as per their primary care systems recommendation.
CHRONIC MEDICAL CONDITIONS SIGNIFICANTLY AFFECTING CARE
The patient is on regular medication (Eliquis) due to a history of blood clot in the heart and irregular heartbeat.
MEDICATIONS
Current medication: Cefalexin 500 mg, four times a day. The patient is also taking Eliquis, which was started in 2018 following a blood clot in the heart and irregular heartbeat.
PHYSICAL EXAM
General: Alert, no acute distress.
Skin: Warm, dry. No acute findings, although there is a recent change in leg discoloration related to cellulitis.
Head: Normocephalic, atraumatic.
Neck: Supple, trachea midline.
Eye, Ears, Nose, Mouth, and Throat: Oral mucosa moist.
Cardiovascular: Normal peripheral perfusion, No edema.
Respiratory: Respirations are non-labored.
Gastrointestinal : Abdomen nondistended.
Back: Normal range of motion, Normal alignment.
Musculoskeletal: Normal range of motion, normal strength.
Neurological: Alert and oriented to person, place, time, and situation, No focal neurological deficit observed.
Psychiatric: Cooperative, appropriate mood & affect.
PROBLEM LIST
Acute:
- Cellulitis of leg with worsening discoloration
Chronic:
- History of vascular bypass surgery
- Irregular heartbeat with history of blood clot in the heart
PLAN
The plan involves obtaining blood tests to evaluate the current status and therapeutic effect, and determine whether to continue the current antibiotic or consider an alternative treatment.
DIFFERENTIAL DIAGNOSIS
The Differential Diagnosis includes, in no particular order and is not limited to:
- Cellulitis
- Deep vein thrombosis
- Contact dermatitis
- Venous stasis dermatitis
- Thrombophlebitis
- Erysipelas
- Lipodermatosclerosis
- Lymphedema
- Chronic venous insufficiency
- Necrotizing fasciitis
CARE-UPDATE
06/09/25 - 14:01
The patient is experiencing left-sided cellulitis that is not responding to outpatient treatment, as evidenced by elevated ESR and CRP levels.The decision has been made to admit the patient to the hospitalist for further evaluation and management.
Disposition:
SUMMARY OF ENCOUNTER
The patient, a 65-year-old male with a history of vascular issues including peripheral vascular disease, femoral-popliteal bypass, and chronic kidney disease, was seen in the emergency department for evaluation of cellulitis of the left lower leg.
The cellulitis has not responded to outpatient treatment with oral antibiotics. In light of the patients complex medical history and worsening symptoms, intravenous antibiotics were administered.
DISPOSITION
Admit to hospitalist.
ASSESSMENT
The patient is experiencing cellulitis of the left lower leg that is not responding to the current outpatient antibiotic regimen, likely due to underlying chronic conditions including peripheral vascular disease.
EMERGENCY TREATMENTS ADMINISTERED
Intravenous antibiotics (Spousalong).
MANAGEMENT OF THE PATIENTS CARE WAS DISCUSSED WITH
Hospitalist team consulted for admission and further management.
PLAN
1. Admit the patient for inpatient care under the hospitalist team.
2. Continue intravenous antibiotic therapy.
3. Monitor renal function closely given the patients history of chronic kidney disease.
4. Evaluate and manage any complications related to peripheral vascular disease and diabetes that may affect the treatment of cellulitis.
INDEPENDENT REVIEW OF LABS AND INTERPRETATION OF TESTS
My independent review indicates elevated inflammatory markers (ESR, CRP) consistent with ongoing infection but no specific lab results are mentioned in the transcript.
MEDICATION RECONCILIATION
1. Cephalexin, previously taken as an outpatient, noted to be ineffective.
2. Intravenous Spousalong administered during the emergency visit.
MEDICAL DECISION MAKING
1. Number and Complexity of Problems Addressed: Chronic conditions affecting care - history of popliteal artery bypass, chronic kidney disease, peripheral vascular disease, diabetes, history of infected left leg. Differential Diagnosis: Cellulitis,
Deep vein thrombosis, Contact dermatitis, Venous stasis dermatitis, Thrombophlebitis, Erysipelas, Lipodermatosclerosis, Lymphedema, Chronic venous insufficiency, Necrotizing fasciitis.
2. Data:
- Category 1: External records reviewed from previous outpatient encounters.
- Category 3: Discussion of management with the hospitalist team for inpatient admission.
3. Risk: Decision was made for inpatient care due to the complexity and potential risks associated with advancing cellulitis and the patients chronic comorbid conditions.
DIAGNOSIS
1. Cellulitis of left lower leg, resistant to outpatient antibiotics (ICD-10: L03.116).
2. Chronic kidney disease (ICD-10: N18.9).
3. Peripheral vascular disease with claudication (ICD-10: I73.9).
4. Diabetes mellitus (ICD-10: E11.9).
Past History
Past History
ED Past Medical History: HTN, NIDDM and Renal failure
ED Past Surgical History: None
Social History
Tobacco: Non-smoker
Alcohol: Daily
Drug: None
Personal: Single
Living: with family
Employment: Employed
Phy Exam
Physical Exam
Physical Exam:
.
Course
Orders/Labs/Results
Orders:
Orders
06/09/25 12:13
IV Insert/Care/Rem.- Treatment PRN
06/09/25 12:17
Basic Metabolic Panel Urgent
CRP [C-Reactive Protein] Urgent
Complete Blood Count/With Diff Urgent
ESR [Erythrocyte Sed Rate] Urgent
06/09/25 13:59
CeFAZolin 2 GRAM [Ancef] 2 grams in 10 ml IV NOW
Abnormal Lab Results
06/09/25
12:17
RBC 4.58 L 10^6/uL
(4.70-6.10)
Hgb 12.9 L g/dL
(13.0-18.0)
Hct 38.3 L %
(39.0-52.0)
Abs Immat Gran (auto) 0.1 H 10^3/uL
(0-0.05)
Absolute Neuts (auto) 8.6 H 10^3/uL
(1.4-6.5)
Absolute Lymphs (auto) 0.8 L 10^3/uL
(1.2-3.4)
Absolute Monos (auto) 0.8 H 10^3/uL
(0.1-0.6)
Immature Gran % 1.1 H %
(0-0.5)
Neutrophils % 82.6 H %
(42.2-75.2)
Lymphocytes % 7.3 L %
(20.5-51.1)
ESR 69 H mm/hour
(0-20)
BUN 34 H mg/dl
(9-20)
Creatinine 2.4 H mg/dL
(0.7-1.3)
Glucose 310 H mg/dl
(70-99)
C-Reactive Protein 264.00 H mg/L
(0.0-10.00)
06/09/25 12:17
06/09/25 12:17
Vital Signs
Initial and Last Documented VS:
Initial Vital Signs
Temp Pulse Resp BP Pulse Ox
98.2 F 65 16 126/89 98
06/09/25 11:42 06/09/25 11:42 06/09/25 11:42 06/09/25 11:42 06/09/25 11:42
Last Documented Vital Signs
Temp Pulse Resp BP Pulse Ox
98.3 F 61 16 118/74 99
06/09/25 12:46 06/09/25 12:46 06/09/25 12:46 06/09/25 12:46 06/09/25 12:46
*Pulse Oximetry
SaO2: 98
Oxygen Mode of Delivery: Room air
Patient hypoxic: no
*Critical Care Note
Total Time (30-74mins, 75-104mins- exclusive of procedures): Not Applicable
ED Attending Note
-
Portions of this chart may have been created with voice recognition software.� Occasional wrong word or��sound alike� substitutions may have occurred due to the inherent limitations of voice recognition software.
Discharge Plan
Departure
Patient Disposition: Admit
Date of Disposition: 06/09/25
Time of Disposition: 13:59
Admit to: Med/Surg
Presentation/result/management discussed w/ accepting MD/DO: Hospitalist
Patient with high blood pressure during this ER visit?: No
Condition: Fair
Discharge Problem:
Cellulitis of left leg, CKD (chronic kidney disease), stage III, Peripheral vascular disease
Prescriptions:
No Action
metoprolol succinate 100 MG tablet extended release 24 hr
200 mg PO DAILY
isosorbide dinitrate 10 MG tablet
10 mg PO TID
Eliquis 5 MG tablet
5 mg PO BID
prednisone 20 MG tablet
4 mg PO DAILY
losartan 50 mg Tablet
75 mg PO DAILY
amlodipine 10 mg Tablet
10 mg PO DAILY
oxycodone 5 mg Tablet
5 mg PO Q4HPRN PRN (Reason: moderate pain) Qty: 10 0RF
aspirin 81 mg Tablet,Chewable
81 mg PO DAILY Qty: 90 0RF
cephalexin 500 mg capsule
500 mg PO QID 7 Days Qty: 28 0RF
Referrals:
Ameya Stevenson MD [Family Provider, Family Practice]
Interventions
Interventions:
*Risk Screen - Suicide Last Done: 06/09/25 11:42
*General Assessment Last Done: 06/09/25 11:55
*Neglect/Abuse Screening Last Done: 06/09/25 11:42
*ED- Fall Risk Assessment Last Done: 06/09/25 11:55
ED-Skin Assessment Last Done: 06/09/25 11:55
Discharge Date and Time
Print Language: AUSTRALIAN
[2025-06-09 12:38] LABS: Hematocrit 38.3 % (39.0-52.0); Hemoglobin 12.9 g/dL (13.0-18.0); Mean Corp Hgb Conc. 33.7 g/dL (33.0-37.0); Mean Corpuscular Volume 83.6 fL (80.0-94.0); Nucleated Red Blood Cells % 0 % (-); Platelet Count 330 10^3/uL (130-400); Red Cell Dist. Width 13.2 % (11.5-14.5)
[2025-06-09 12:46] VITALS: BP 118/74
[2025-06-09 13:03] LABS: Blood Urea Nitrogen 34 mg/dl (9-20); Calcium 8.5 mg/dl (8.4-10.2); Carbon Dioxide 24 mmol/L (22-30); Chloride 103 mmol/L (98-107); Estimated Creatinine Clearance 34 ml/min; Glucose 310 mg/dl (70-99); Sodium 135 mmol/L (135-145); eGFR 29.39
[2025-06-09 13:55] LABS: C-Reactive Protein 264.00 mg/L (0.0-10.00)
--- NOTE | 2025-06-09 14:17 | HPS.HSE ---
Addendum entered and electronically signed by Demetrio Tejada MD 06/09/25 15:49:
Patient seen and examined independently
Plan of care discussed with nurse practitioner Dorcas.
Impression
Left lower extremity cellulitis nonpurulent. Not responding to oral antibiotic therapy.
Conditions prior to admission:
PAD.
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
CAD, nonobstructive according to recent left heart catheterization
Ischemic cardiomyopathy with mildly reduced LVEF at 45 to 50%
A flutter, paroxysmal
Anticoagulation with Eliquis.
CKD stage IIIb with baseline creatinine 1.9�2.2
Plan
Left lower extremity cellulitis, nonpurulent, although with extensive area of involvement from ankle to the knee.
No systemic symptoms of sepsis upon presentation.
Exam with significant erythema and induration extending from ankle to the knee. Without crepitus. Foot warm with no sensory deficit and palpable peripheral pulses
Reported outside peripheral Doppler negative for DVT. In addition patient has been compliant with Eliquis
Blood cultures, probably elevated value given ongoing antibiotic therapy will be checked.
Broaden antibiotics to vancomycin and Zosyn
Vascular surgery evaluation
Hyperglycemia.
Suspect untreated diabetes.
Patient is on chronic steroid maintenance therapy for P ANCA vasculitis.
Check hemoglobin A1c
Basal bolus protocol with serial Accu-Cheks.
Carbohydrate renal diet.
CAD
Paroxysmal A-flutter.
Hypertension
Continue preadmission regimen including: Amlodipine, Imdur, losartan, Toprol-XL
Continue anticoagulation with Eliquis
CKD stage IIIb baseline creatinine 2.4 slightly increased over baseline
Monitor trend
Avoid hypotension
P ANCA vasculitis/glomerulonephritis
Continue prednisone 4 mg at the maintenance dose
Full code
DVT prophylaxis Eliquis
Original Note:
Family Physician
-
Family Physician: Ameya Stevenson
Chief Complaint
-
Left lower extremity expanding erythema
History of Present Illness
65-year-old male who reports was treated for cellulitis starting 1 week ago by PCP however he feels the leg is more erythematous despite being on Keflex 4 times a day. He has past medical history of left lower extremity bypass involving the
popliteal artery with history of popliteal artery aneurysm. Patient reports he had outpatient left lower extremity ultrasound on 06/06/2025 at [facility] [place] that was negative for DVT. He denies fever, chills, sore
throat, chest pain, palpitations, cough, shortness breath, abdominal pain, nausea, vomiting, diarrhea, urinary symptoms. Other PMH CKD 3B�4/ANCA vasculitis kidney DM 2, HTN, A-flutter on Eliquis, CHF, cardiomyopathy EF 45-50%, small PFO, sleep
apnea, arthritis, normocytic anemia, ulcerative colitis Dx November 2024
Medical History
Past Medical History
Past Medical History: Reports Other
Additional Past Medical History:
left lower extremity bypass involving the popliteal artery with history of popliteal artery aneurysm.
CKD 3B�4/ANCA vasculitis on chronic steroids
DM 2
HTN
A-flutter on Eliquis
CHF
cardiomyopathy EF 45-50%
small PFO
Ulcerative colitis Dx November 2024
sleep apnea
arthritis
normocytic anemia
Past Surgical History: Reports Other
Additional Past Surgical History:
left lower extremity bypass involving the popliteal artery with history of popliteal artery aneurysm.
Social History
Tobacco: Non-smoker
Alcohol: None
Drug: None
Personal:
Living: With Family
Family History
Family History: Other (HTN, DM 2)
Allergies / Home Medications
Allergies reflects when Allergies were last updated in [employer].
Home Medications with original date entered in [employer]
Allergy/Medication List:
Allergies
Allergy/AdvReac Type Severity Reaction Status Date / Time
No Known Allergies Allergy Verified 06/09/25 11:45
Home Medications
apixaban 5 mg tablet (Eliquis) 5 mg PO BID Blood clot prevention/tx 11/06/21
isosorbide dinitrate 10 mg tablet 10 mg PO TID Heart Failure 11/06/21
amlodipine 10 mg tablet 10 mg PO DAILY Blood Pressure 08/11/24
losartan 50 mg tablet 75 mg PO DAILY Heart Failure 08/11/24
cephalexin 500 mg capsule 500 mg PO QID 7 days #28 caps 11/02/24
mesalamine 0.375 gram capsule,extended release 24 hr 1.5 g PO DAILY 06/09/25
metoprolol succinate 200 mg tablet,extended release 24 hr (Toprol XL) 200 mg PO DAILY 06/09/25
prednisone 1 mg tablet 4 mg PO DAILY 06/09/25
Review of Systems
-
History Source: Patient and Family ( at bedside)
A 12 point ROS was completed and negative except as noted: Yes
Constitutional: Denies Fever or Chills
EENT: Denies Sore Throat
Respiratory: Denies Cough or Trouble Breathing
Cardiac: Denies Chest Pain, Diaphoresis or Palpitations
Abdomen/GI: Denies Abdominal Pain, Nausea, Vomiting, Diarrhea or Constipated
: Denies Dysuria, Frequency, Flank Pain or Incontinence
Musculoskeletal: Reports Edema (Left lower extremity with circumferential erythema below knee to just above ankle no obvious abrasions wounds or injuries); Denies Joint Pain or Joint Swelling
Skin: Denies Itching or Rash
Neurological: Denies Dizzy or Headache
Endocrine: Reports No Symptoms
Hematologic/Lymphatic: Reports No Symptoms
Psych: Reports Calm
Physical Exam
Vital Signs
Vital Signs
Temp Pulse Resp BP Pulse Ox
98.3 F 61 16 118/74 99
06/09/25 12:46 06/09/25 12:46 06/09/25 12:46 06/09/25 12:46 06/09/25 12:46
Physical Exam
General: Conversant; No Fever or Chills
HEENT: NormoCephalic, Anicteric, Moist mucous membranes, PERRLA, [place] Conjunctivae and No Ptosis
Respiratory: Clear; No Wheezes, Rales or Rhonchi
Cardiac: S1/S2, Regular Rhythm and Peripheral Edema (Left lower extremity); No Murmur, Rub or Gallop
Breast: Deferred by me
GI: Soft, Non Tender, Non Distended, Normal Bowel Sounds and No Hepatosplenomegaly
Rectal: Deferred by Provider
Genito-urinary: Deferred by me
Musculoskeletal: No Clubbing, No Cyanosis and Edema, Left Lower Extremity (Left lower extremity with circumferential erythema below knee to just above ankle no obvious abrasions wounds or injuries, +2 dorsal pedal pulse sensation intact); No Edema,
Left Upper Extremity, Edema, Right Upper Extremity or Edema, Right Lower Extremity
Skin: Warm and Dry; No Rash
Neuro: AO x 3, No Motor Deficits, Nonfocal/grossly intact, Cranial Nerves Intact and No Sensory Deficits; No Slurred Speech, Facial Droop, Tremors or Sedated
Psych: Calm
Laboratory Results
-
06/09/25 12:17
06/09/25 12:17
Laboratory Results
Total Bilirubin Cancelled 06/09/25 12:17
AST Cancelled 06/09/25 12:17
ALT Cancelled 06/09/25 12:17
Alkaline Phosphatase Cancelled 06/09/25 12:17
Impression/Plan
-
Impression/plan:
Admit to MedSurg
#Left lower extremity cellulitis failure outpatient ABX
#History of femoropopliteal bypass LLE popliteal artery(history of aneurysm popliteal artery)
1 week oral Keflex 4 times daily with no improvement
Patient reports outpatient left lower extremity ultrasound 06/04/2022 [facility] negative DVT is on Eliquis
CRP 264
- IV Ancef given in ER
-Will change IV vancomycin IV Zosyn renal dose
-Consult vascular surgery
- Follow CBC, CMP
#JASON on CKD stage IIIb-IV/ ANCA vasculitis
Creatinine 2.4 previous 1.9 on 11/02/2024
-IV NSS
-Follow BMP
- Hold losartan 75 mg daily
- Continue prednisone 4 mg daily
#DM 2/uncontrolled
Blood sugar 310
Accu-Cheks with SSI, check HgbA1c
#HTN
BP 118/74
-Continue metoprolol succinate 200 mg daily, Imdur 10 mg 3 times daily, amlodipine 10 mg daily with hold parameters
-Hold losartan 75 mg daily due to JASON
#A-flutter
Continue Eliquis 5 mg twice daily, metoprolol succinate 200 mg daily
#History CHF
#History cardiomyopathy EF 45-50%
#History small PFO
Continue Imdur 10 mg 3 times daily with hold parameters
-Follows with [facility] cardiology
2D echo 10/01/2024: Mild reduced LVSF, EF 45-50%, moderate MR, mild AR, small PFO with [id number] shunt
#Ulcerative colitis Dx November 2024
Continue mesalamine 1.5 g p.o. daily
#Sleep apnea
Other PMH:
Arthritis unknown type
Anemia�Hgb stable 12.9, MCV 83.6
Strabismus with correction times 12/01/1966
DVT prophylaxis
Continue B[employer] Eliquis
Full code
[2025-06-09] MEDS: ANCEF 10 IV (14:33)
[2025-06-09] MEDS: ZOSYN 50 IV ×2 (15:42→22:02)
--- NOTE | 2025-06-09 15:43 | PHA.VAN.IN ---
Assessment
- Assessment
Renal Function: SCR Appears Elevated from baseline (range between 1.6-2 in the past)
Maximum Temperature: 98.3F
Minimum Temperature: 98.2F
Concomitant Antimicrobials: Zosyn
Plan
- Plan
Initial / Loading Dose: 2000MG
Maintenance Regimen: PRN dosing by levels
Monitoring: Random level 06/10/25 @0600
Pharmacokinetics Vancomycin I
- -
Patient Age: 65
Patient Sex: Male
Vancomycin Day #: 1
Indication: Skin And Soft Tissue
Requesting Provider: Aye
Pertinent Antimicrobial Allergies:
NKDA
Height / Weight:
Height 6 ft
Actual Weight 86 kg
Pertinent Past Medical History: PAD s/p LLE bypass, CKD 3B-4, failed 1 week of Keflex outpatient
- Vital Signs / Lab Results
Temp Pulse Resp BP Pulse Ox
98.3 F 61 16 118/74 99
06/09/25 12:46 06/09/25 12:46 06/09/25 12:46 06/09/25 12:46 06/09/25 12:46
Lab Results - Hematology
06/09/25
12:17
WBC 10.3
Lab Results - Chemistry
06/09/25
12:17
BUN 34 H
Creatinine 2.4 H
Estimated Creat Clear 34
Albumin Cancelled
[2025-06-09] MEDS: VANCOCIN 540 MG IV (16:05)
--- NOTE | 2025-06-09 16:08 | CON.VAS ---
Addendum entered and electronically signed by Kadeem Jacobsen MD 06/10/25 08:28:
Correction to below, the venous duplex I reviewed was an older study. No recent venous duplex performed. Would recommend venous duplex to rule out DVT if not already performed.
Addendum entered and electronically signed by Kadeem Jacobsen MD 06/10/25 08:27:
Seen and examined with FÉLIX Dee last evening in the emergency room. This is a late entry. 65-year-old male known well to me status post open surgical repair of left popliteal artery aneurysm with exclusion/bypass with autogenous saphenous vein
conduit. He has had chronic left lower extremity redness and swelling symptoms. However he notes that recently there redness has been worse. He noted that about 2 weeks ago or so he injured his anterior calf on a bed frame. Had some swelling.
The erythema started shortly after that. On exam/he is awake and alert. No acute distress. Breathing is unlabored. Left thigh and calf incisions fully healed. No redness or fullness or pulsatile masses in the vicinity of the bypass. Distal to
the lower scar (distal to the bypass graft) there is an anterior calf swelling/hematoma/injury site. Skin is intact. It is soft. Distal to there he has some mild redness of the calf. Mild swelling as well. Palpable DP pulse on the foot.
Studies personally reviewed and personally interpreted as well as reports reviewed.
Duplex recently performed demonstrates patency of the bypass with no issue.
Venous ultrasound shows no DVT.
Plan/ No acute arterial/vascular surgical issue. I think likely his erythema/swelling is either due to hematoma tracking down from his recent injury or alternatively cellulitis again secondary to his injury and potential micro abrasion to the skin
resulting in bacterial translocation to the subcutaneous space. Agree with IV antibiotics to see if this improves. No further intervention at this point.
Original Note:
Consultation
Consultation Request
Date/Time Consultation Performed: 06/09/25 1600
Requesting Provider: Dorcas Griffiths NP
Performing Provider: Bell Dee, KNITTING MACHINE OPERATOR AUTOMATIC-C for Kadeem Jacobsen MD
Reason for Consultation: LLE cellulitis
Medical History
-
Chief Complaint: LLE cellulitis
History of Present Illness:
This is an 65-year-old male with significant past medical history for CKD 3B, diabetes, hypertension, a flutter, cardiomyopathy with a EF of 4550%, PFO, ulcerative colitis, sleep apnea, arthritis, anemia, and left lower extremity popliteal artery
aneurysm with ligation and bypass who presents to [facility] ED with reports of roughly 1 week of left lower extremity calf cellulitis. Patient is known to our surgical group as he underwent open surgical repair of left popliteal artery aneurysm
with medial exclusion/bypass using ipsilateral nonreversed greater saphenous vein conduit on 09/30/[address] Kadeem Jacobsen M.D. Patient endorses that he has been doing well, until about roughly 2 weeks ago when he bumped his left benton on a bed frame
and noticed some swelling, shortly thereafter he began experiencing increased erythema which prompted him to seek outpatient evaluation. He had an x-ray that demonstrated no fracture to left lower extremity, a DVT ultrasound which she says was
negative, and ultimately was started on p.o. Keflex. However, when erythema and mild swelling did not improve he called PCP who recommended ED evaluation. He denies any additional accompanying symptoms of infection including fever, cough, chills,
nausea, vomiting, and loose stools. He does endorse chronic lower extremity swelling left worse than right, but indicates recent left lower extremity swelling is worse than usual and now accompanied with redness. Denies claudication. Of note he
recently had arterial duplex ultrasound with VIVIAN/TBI as part of routine surveillance following his bypass on 05/26/2025 which demonstrates a normal VIVINA and TBI and multiphasic waveforms throughout left lower extremity including bypass, additionally
no evidence of increased velocities suggesting stenosis.
Past Medical History
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
Past Surgical History: Cardiac (Cardiac catheterization)
Social History
Tobacco: Non-Smoker
Alcohol: None
Drug: None
Living: With Family
Allergies / Home Medications
Allergy/AdvReac Type Severity Reaction Status Date / Time
No Known Allergies Allergy Verified 06/09/25 11:45
�Medication �Instructions �Recorded �Confirmed �Type
apixaban 5 mg tablet (Eliquis) 5 mg PO BID Blood clot 11/06/21 06/09/25 History
prevention/tx
isosorbide dinitrate 10 mg tablet 10 mg PO TID Heart Failure 11/06/21 06/09/25 History
amlodipine 10 mg tablet 10 mg PO DAILY Blood Pressure 08/11/24 06/09/25 History
losartan 50 mg tablet 75 mg PO DAILY Heart Failure 08/11/24 06/09/25 History
cephalexin 500 mg capsule 500 mg PO QID 7 days #28 caps 11/02/24 06/09/25 Rx
mesalamine 0.375 gram 1.5 g PO DAILY 06/09/25 06/09/25 History
capsule,extended release 24 hr
metoprolol succinate 200 mg 200 mg PO DAILY 06/09/25 06/09/25 History
tablet,extended release 24 hr
(Toprol XL)
prednisone 1 mg tablet 4 mg PO DAILY 06/09/25 06/09/25 History
Review of Systems
-
History Source: Patient
Constitutional: Reports No Symptoms
EENT: Reports No Symptoms
Respiratory: Reports No Symptoms
Cardiac: Reports No Symptoms
Vascular: Denies Leg Pain / Claudication
Abdomen/GI: Reports No Symptoms
: Reports No Symptoms
Musculoskeletal: Reports Edema (Left lower extremity worse than right)
Skin: Reports Other (Left lower extremity calf anterior and posterior redness)
Physical Exam
Vital Signs
Temp Pulse Resp BP Pulse Ox
98.3 F 61 16 118/74 99
06/09/25 12:46 06/09/25 12:46 06/09/25 12:46 06/09/25 12:46 06/09/25 12:46
Lab Results
06/09/25 12:17
06/09/25 12:17
Physical Exam
General: No Apparent Distress
HEENT: Normocephalic, Anicteric and Atraumatic
Respiratory: Non Labored Respirations
Cardiac: Negative JVD
GI: Soft, Non Tender and Non Distended
Musculoskeletal: Edema (Left lower extremity +2 edema, right lower extremity +1) and Other (Left DP palpable +2)
Skin: Other (Left lower extremity below knee benton/calf area with erythema)
Neuro: AO x 3
Assessment / Plan
-
Assessment: 65-year-old male with left lower extremity cellulitis who underwent left lower extremity open surgical repair of left popliteal artery aneurysm with medial exclusion/bypass using ipsilateral nonreversed greater saphenous vein conduit by
Dr. Kadeem Jacobsen on 09/30/2024.
Plan:
Noninvasive arterial studies with VIVIAN/TBI done on 05/26/2025 demonstrate more than adequate blood flow to left lower extremity foot, peripheral arterial disease not contributing to current cellulitis. Agree with initiation of antibiotics. No
surgical intervention indicated. Patient seen and examined at bedside with Dr. Kadeem Jacobsen M.D., who agreed with above plan.
I performed this shared service with the attending. I evaluated the patient [id number] and have entered clinical documentation as shown in the encounter note. I performed the following component(s): history and physical exam. Note that medical
decision making is not final until attested by vascular attending.
[2025-06-09 17:14] VITALS: BP 147/88; BMI 27.8
[2025-06-09 17:21] LABS: Glucose - Point of Care 192 mg/dl (70-99)
[2025-06-09 17:24] VITALS: BMI 27.8
[2025-06-09] MEDS: NOVOLOG FLEXPEN-LOW RESISTANCE 1 UNITS SC (17:46)
[2025-06-09] MEDS: ISORDIL 10 MG PO ×2 (17:46→22:02)
--- NOTE | 2025-06-09 18:05 | TRANSFER ---
pt arrived from ED via stretcher accompanied by staff. pt ambulated from stretcher to bed with standby assist. pt AAOx3, VSS, call conrad within reach. POC ongoing.
[2025-06-09] MEDS: NSS 1000 IV (18:11)
[2025-06-09] MEDS: ELIQUIS 5 MG PO (19:24)
[2025-06-09 21:33] LABS: Glucose - Point of Care 167 mg/dl (70-99)
[2025-06-09 22:01] VITALS: BP 138/82
[2025-06-10] MEDS: ZOSYN 50 IV ×4 (04:25→21:12)
[2025-06-10] MEDS: NSS 1000 IV ×3 (04:26→23:06)
[2025-06-10 06:00] VITALS: BMI 27.9
[2025-06-10 06:32] LABS: Hematocrit 39.8 % (39.0-52.0); Hemoglobin 13.4 g/dL (13.0-18.0); Mean Corp Hgb Conc. 33.7 g/dL (33.0-37.0); Mean Corpuscular Volume 82.7 fL (80.0-94.0); Nucleated Red Blood Cells % 0 % (-); Platelet Count 341 10^3/uL (130-400); Red Cell Dist. Width 13.2 % (11.5-14.5)
[2025-06-10 06:58] LABS: Glucose - Point of Care 138 mg/dl (70-99)
[2025-06-10 07:00] VITALS: BP 145/97
[2025-06-10] MEDS: NOVOLOG FLEXPEN-LOW RESISTANCE SC (07:06)
[2025-06-10] MEDS: ISORDIL 10 MG PO ×3 (07:50→21:17)
[2025-06-10] MEDS: TOPROL XL 200 MG PO (07:50)
[2025-06-10] MEDS: NORVASC 10 MG PO (07:50)
[2025-06-10] MEDS: ELIQUIS 5 MG PO ×2 (07:50→19:43)
[2025-06-10] MEDS: DELTASONE 4 MG PO (07:50)
[2025-06-10 08:07] LABS: Glycohemoglobin (HgbA1c) 7.2 % (4.0-5.6)
[2025-06-10 09:13] LABS: ALT (SGPT) 11 U/L (0-50); AST (SGOT) 12 U/L (17-59); Albumin 3.5 g/dl (3.5-5.0); Alkaline Phosphatase 56 U/L (38-126); Blood Urea Nitrogen 26 mg/dl (9-20); Calcium 8.5 mg/dl (8.4-10.2); Carbon Dioxide 20 mmol/L (22-30); Chloride 110 mmol/L (98-107); Estimated Creatinine Clearance 39 ml/min; Glucose 147 mg/dl (70-99); Potassium 4.0 mmol/L (3.5-5.1); Sodium 140 mmol/L (135-145); Total Protein 5.9 g/dl (6.3-8.2); eGFR 38.91
[2025-06-10 10:40] VITALS: BP 147/89; PULSE 78; O2SAT 97
--- NOTE | 2025-06-10 11:59 | CM ---
Alert awake oriented patient who lives alone in a 2 story home with 2 steps to enter and 12 steps to bed / bathroom.He is independent in driving and all ADLs.Sister Gardenia is supportive. Offered VN he declined need. No adaptive devices.
NO VN /SNF hx.
Pharmacy [facility] [address]
PCP DR Stevenson .
PLAN Home no anticipated needs
--- NOTE | 2025-06-10 12:05 | PHA.VAN.FU ---
Vancomycin Assessment / Plan
- Assessment
Renal Function: SCR Decreasing (Scr 2.4 -->1.9)
WBC's are: Trending Down
In the past 24 hrs, patient has been: Afebrile
Concomitant Antimicrobials: Piperacillin/tazobactam
- Assessment - Therapeutic Drug Monitoring
Random Level: 15.5 drawn approx 14 hours after loading dose of vanc 2000mg
- Dosing Plan
Dosing by Level: Re-dose today (Vancomycin 1000mg)
- Monitoring Plan
Random Level: 06/11 with am labs
- Follow Up
Pharmacy will continue to follow.
Vancomycin Follow UP
- -
Patient Age: 65
Patient Sex: Male
Vancomycin Day #: 2
Indication: Skin And Soft Tissue
Requesting Provider: Aye
Pertinent Antimicrobial Allergies:
NKDA
Height / Weight:
Height 5 ft 9 in
Actual Weight 85.502 kg
Pertinent Past Medical History: PAD s/p LLE bypass, CKD 3B-4, failed 1 week of Keflex outpatient
- Vital Signs / Lab Results
Temp Pulse Resp BP Pulse Ox
97.4 F 105 20 145/97 94
06/10/25 07:00 06/10/25 07:50 06/10/25 07:00 06/10/25 07:50 06/10/25 09:41
Lab Results - Hematology
06/09/25 06/10/25
12:17 06:09
WBC 10.3 7.7
Lab Results - Chemistry
06/09/25 06/10/25 06/10/25
12:17 06:09 08:07
BUN 34 H Cancelled 26 H
Creatinine 2.4 H Cancelled 1.9 H
Estimated Creat Clear 34 Cancelled 39
Albumin Cancelled Cancelled 3.5
Therapeutic Drug Monitoring
Random Vancomycin 15.5 ug/ml 06/10/25 06:09
[2025-06-10] MEDS: VANCOCIN 200 IV (13:05)
[2025-06-10 13:07] LABS: Glucose - Point of Care 198 mg/dl (70-99)
[2025-06-10] MEDS: NOVOLOG FLEXPEN-LOW RESISTANCE 1 UNITS SC ×2 (13:08→16:31)
[2025-06-10 15:00] VITALS: BP 137/89
[2025-06-10] MEDS: NON-FORMULARY ITEM 1.5 GRAMS PO (15:25)
--- NOTE | 2025-06-10 15:32 | W.PN.HOSP.TC ---
Today's Communication/Plan
-
Significantly improved erythema and induration of the left leg.
Follow blood cultures.
If negative transition back to cephalexin on 06/11 and discharge
Assessment / Plan
Assessment / Plan
Impression
Left lower extremity cellulitis nonpurulent. Not responding to oral antibiotic therapy.
Conditions prior to admission:
PAD.
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
CAD, nonobstructive according to recent left heart catheterization
Ischemic cardiomyopathy with mildly reduced LVEF at 45 to 50%
A flutter, paroxysmal
Anticoagulation with Eliquis.
CKD stage IIIb with baseline creatinine 1.9�2.2
Plan
Left lower extremity cellulitis, nonpurulent, although with extensive area of involvement from ankle to the knee.
No systemic symptoms of sepsis upon presentation.
Exam with significant erythema and induration extending from ankle to the knee. Without crepitus. Foot warm with no sensory deficit and palpable peripheral pulses
Reported outside peripheral Doppler negative for DVT. In addition patient has been compliant with Eliquis
In addition reports trauma likely with deep tissue hematoma.
Improved significantly since on IV antibiotics.
Blood cultures pending
Plan is to transition back to cephalexin on 06/11 if blood cultures negative
Hyperglycemia.
Suspect untreated diabetes.
Patient is on chronic steroid maintenance therapy for P ANCA vasculitis.
Hemoglobin A1c 7.2
Basal bolus protocol with serial Accu-Cheks.
Carbohydrate renal diet.
CAD
Paroxysmal A-flutter.
Hypertension
Continue preadmission regimen including: Amlodipine, Imdur, losartan, Toprol-XL
Continue anticoagulation with Eliquis
CKD stage IIIb baseline creatinine 2.4 slightly increased over baseline
Monitor trend
Avoid hypotension
P ANCA vasculitis/glomerulonephritis
Continue prednisone 4 mg at the maintenance dose
Full code
DVT prophylaxis Eliquis
Anticipated Discharge: 24 - 48 hours
Subjective/Interval History
-
Date of Service: June 10, 2025
Objective Data
-
Labs:
Laboratory Results
06/10/25 06/10/25
06:09 08:07
WBC 7.7
Hgb 13.4
Hct 39.8
Plt Count 341
Sodium Cancelled 140
Potassium Cancelled 4.0
Chloride Cancelled 110 H
Carbon Dioxide Cancelled 20 L
BUN Cancelled 26 H
Creatinine Cancelled 1.9 H
Glucose Cancelled 147 H
Calcium Cancelled 8.5
Total Bilirubin Cancelled 0.8
AST Cancelled 12 L
ALT Cancelled 11
Alkaline Phosphatase Cancelled 56
Vital Signs:
Vital Signs
Temp Pulse Resp BP Pulse Ox
97.5 F 83 20 137/89 93
06/10/25 15:00 06/10/25 15:00 06/10/25 15:00 06/10/25 15:00 06/10/25 15:00
I&O
06/09/25 06/10/25 06/11/25
06:59 06:59 06:59
Intake Total 1540 / 1540 180 / 180
Output Total 400 / 400
Balance 1140 / 1140 180 / 180
Physical Exam
-
General: Well Developed and No Apparent Distress
HEENT: Normocephalic, Atraumatic and Moist Mucous Membranes
Respiratory: Clear to Auscultation
Cardiac: Regular Rhythm and S1/S2; Negative Murmur, Rub or Gallop
GI: Soft, Nontender, Nondistended and Normal Bowel Sounds; Negative Organomegaly
Rectal: Deferred by Provider
Musculoskeletal: No Clubbing, No Cyanosis, No Edema and Other (Left lower extremity with improving erythema and induration shrinking away from demarcation from ankle to the knee)
Skin: Negative Rash
Neuro: Nonfocal/Grossly Intact
[2025-06-10 16:25] LABS: Glucose - Point of Care 188 mg/dl (70-99)
[2025-06-10 21:23] VITALS: BP 136/87
[2025-06-10 21:38] LABS: Glucose - Point of Care 113 mg/dl (70-99)
[2025-06-10 23:29] VITALS: BP 136/88
[2025-06-11] MEDS: ZOSYN 50 IV ×4 (03:21→21:12)
[2025-06-11 06:00] VITALS: BMI 28.3
[2025-06-11 07:28] VITALS: BP 145/97
[2025-06-11 08:12] LABS: Hematocrit 36.4 % (39.0-52.0); Hemoglobin 12.1 g/dL (13.0-18.0); Mean Corp Hgb Conc. 33.2 g/dL (33.0-37.0); Mean Corpuscular Volume 83.5 fL (80.0-94.0); Nucleated Red Blood Cells % 0 % (-); Platelet Count 331 10^3/uL (130-400); Red Cell Dist. Width 13.2 % (11.5-14.5)
[2025-06-11 08:30] LABS: Glucose - Point of Care 105 mg/dl (70-99)
[2025-06-11] MEDS: NOVOLOG FLEXPEN-LOW RESISTANCE SC (08:35)
[2025-06-11 08:46] LABS: ALT (SGPT) < 10 U/L (0-50); AST (SGOT) 12 U/L (17-59); Albumin 3.4 g/dl (3.5-5.0); Alkaline Phosphatase 49 U/L (38-126); Blood Urea Nitrogen 25 mg/dl (9-20); Calcium 8.7 mg/dl (8.4-10.2); Carbon Dioxide 21 mmol/L (22-30); Chloride 111 mmol/L (98-107); Estimated Creatinine Clearance 39 ml/min; Glucose 97 mg/dl (70-99); Potassium 4.2 mmol/L (3.5-5.1); Sodium 140 mmol/L (135-145); Total Protein 5.7 g/dl (6.3-8.2); eGFR 38.91
--- NOTE | 2025-06-11 08:48 | PHA.VAN.FU ---
Vancomycin Assessment / Plan
- Assessment
Renal Function: Stable
WBC's are: WNL
In the past 24 hrs, patient has been: Afebrile
Concomitant Antimicrobials: PIPERACILLIN/TAZOBACTAM
- Assessment - Therapeutic Drug Monitoring
Random Level: 14.6 DRAWN ~19H AFTER PREVIOUS DOSE VANCO 1000MG
- Dosing Plan
Dosing by Level: Re-dose today (VANCO 750MG X1)
- Monitoring Plan
Random Level: 06/12 @0600
- Follow Up
Pharmacy will continue to follow.
Vancomycin Follow UP
- -
Patient Age: 65
Patient Sex: Male
Vancomycin Day #: 3
Indication: Skin And Soft Tissue
Requesting Provider: Aye
Pertinent Antimicrobial Allergies:
NKDA
Height / Weight:
Height 5 ft 9 in
Actual Weight 86.75 kg
Pertinent Past Medical History: PAD s/p LLE bypass, CKD 3B-4, failed 1 week of Keflex outpatient
- Vital Signs / Lab Results
Temp Pulse Resp BP Pulse Ox
97.7 F 79 16 136/88 94
06/10/25 23:29 06/10/25 23:29 06/10/25 23:29 06/10/25 23:29 06/10/25 23:29
Lab Results - Hematology
06/09/25 06/10/25 06/11/25
12:17 06:09 07:46
WBC 10.3 7.7 6.6
Lab Results - Chemistry
06/09/25 06/10/25 06/10/25
12:17 06:09 08:07
BUN 34 H Cancelled 26 H
Creatinine 2.4 H Cancelled 1.9 H
Estimated Creat Clear 34 Cancelled 39
Albumin Cancelled Cancelled 3.5
06/11/25
07:46
BUN 25 H
Creatinine 1.9 H
Estimated Creat Clear 39
Albumin 3.4 L
Microbiology Results
06/09/25 14:20 Blood Culture - Preliminary
Blood/Venous No Growth in 24 hours- Final report to follow
06/09/25 14:00 Blood Culture - Preliminary
Blood/Venous No Growth in 24 hours- Final report to follow
Therapeutic Drug Monitoring
Random Vancomycin 14.6 ug/ml 06/11/25 07:46
[2025-06-11] MEDS: VANCOCIN 150 IV (08:58)
[2025-06-11] MEDS: TOPROL XL 200 MG PO (09:00)
[2025-06-11] MEDS: ISORDIL 10 MG PO ×3 (09:00→21:12)
[2025-06-11] MEDS: DELTASONE 4 MG PO (09:00)
[2025-06-11] MEDS: NORVASC 10 MG PO (09:00)
[2025-06-11] MEDS: ELIQUIS 5 MG PO ×2 (09:00→20:38)
[2025-06-11] MEDS: NON-FORMULARY ITEM 1.5 GRAMS PO (09:01)
--- NOTE | 2025-06-11 12:02 | W.PN.HOSP.TC ---
Today's Communication/Plan
-
see plan
Assessment / Plan
Assessment / Plan
Gen: NAD, AAOx3.
Eyes: EOMI, PERRLA, no scleral icterus.
Neck: supple.
CV: RRR, +S1/S2, no m/r/g.
Resp: CTAB, no rales, wheezes, or rhonchi.
Abd: +BS, soft, NT, ND
Skin: 2+ LLE edema, very minimal cellulitis
Neuro: CN 2-12 intact, non-focal.
Psych: Normal mood and affect.
06/09/25 14:20 Blood/Venous Blood Culture - Preliminary
No Growth in 24 hours- Final report to follow
06/09/25 14:00 Blood/Venous Blood Culture - Preliminary
No Growth in 24 hours- Final report to follow
Left lower extremity cellulitis:
-nonpurulent
-was not responding to antibiotic therapy prior to admission
-currently on Vanco/Zosyn. As cellulitis is nonpurulent change abx to
PAD:
-h/o open surgical repair of the left popliteal artery aneurysm with medial exclusion/bypass using ipsilateral nonreversed greater saphenous vein conduit 10/09
-vascular saw in c/s and recommended LLE U/S to assess for DVT (note pt reports he had study done 06/06 as outpt that was NEG for DVT and has been compliant with Eliquis)
CAD:
Chronic HFmrEF:
Paroxysmal atrial flutter: Cont Eliquis
DM2: a1c 7.2%, SSI/accuchecks/diabetic diet. Clearly a component of steroid-induced hyperglycemia as patient is on chronic steroid therapy for pANCA vasculitis. Start Glipizide 2.5mg daily.
CKD3b
Essential HTN: Amlodipine, Imdur, losartan, Toprol-XL
pANCA vasculitis/glomerulonephritis: cont Prednisone
Continue prednisone 4 mg at the maintenance dose
FULL/Eliquis
Anticipated Discharge: Within 24 hours
Subjective/Interval History
-
Date of Service: June 11, 2025
No new complaints.
Objective Data
-
Labs:
Laboratory Results
06/11/25
07:46
WBC 6.6
Hgb 12.1 L
Hct 36.4 L
Plt Count 331
Sodium 140
Potassium 4.2
Chloride 111 H
Carbon Dioxide 21 L
BUN 25 H
Creatinine 1.9 H
Glucose 97
Calcium 8.7
Total Bilirubin 0.6
AST 12 L
ALT < 10
Alkaline Phosphatase 49
Vital Signs:
Vital Signs
Temp Pulse Resp BP Pulse Ox
97.6 F 86 18 145/97 98
06/11/25 07:28 06/11/25 07:28 06/11/25 07:28 06/11/25 07:28 06/11/25 07:28
I&O
06/10/25 06/11/25 06/12/25
06:59 06:59 06:59
Intake Total 1540 / 1540 2800 / 2800
Output Total 400 / 400 1325 / 1325
Balance 1140 / 1140 1475 / 1475
[2025-06-11 12:10] LABS: Glucose - Point of Care 183 mg/dl (70-99)
[2025-06-11] MEDS: NOVOLOG FLEXPEN-LOW RESISTANCE 1 UNITS SC ×2 (12:15→17:48)
[2025-06-11 15:05] VITALS: BP 127/76
[2025-06-11 17:48] LABS: Glucose - Point of Care 154 mg/dl (70-99)
[2025-06-11 21:49] LABS: Glucose - Point of Care 154 mg/dl (70-99)
[2025-06-11 23:46] VITALS: BP 123/74
[2025-06-12 05:52] VITALS: BMI 28.1
[2025-06-12 06:07] LABS: Hematocrit 35.4 % (39.0-52.0); Hemoglobin 11.6 g/dL (13.0-18.0); Mean Corp Hgb Conc. 32.8 g/dL (33.0-37.0); Mean Corpuscular Volume 82.5 fL (80.0-94.0); Nucleated Red Blood Cells % 0 % (-); Platelet Count 344 10^3/uL (130-400); Red Cell Dist. Width 13.2 % (11.5-14.5)
[2025-06-12] MEDS: ZOSYN 50 IV ×2 (06:13→09:37)
[2025-06-12 06:33] LABS: ALT (SGPT) < 10 U/L (0-50); AST (SGOT) 11 U/L (17-59); Albumin 3.3 g/dl (3.5-5.0); Alkaline Phosphatase 46 U/L (38-126); Blood Urea Nitrogen 23 mg/dl (9-20); Calcium 8.8 mg/dl (8.4-10.2); Carbon Dioxide 21 mmol/L (22-30); Chloride 111 mmol/L (98-107); Estimated Creatinine Clearance 37 ml/min; Glucose 106 mg/dl (70-99); Potassium 4.0 mmol/L (3.5-5.1); Sodium 137 mmol/L (135-145); Total Protein 5.7 g/dl (6.3-8.2); eGFR 36.58
[2025-06-12 07:40] VITALS: BP 141/86
--- NOTE | 2025-06-12 07:58 | PHA.VAN.FU ---
Vancomycin Assessment / Plan
- Assessment
Renal Function: SCR Increasing
WBC's are: WNL
In the past 24 hrs, patient has been: Afebrile
Concomitant Antimicrobials: PIPERACILLLIN/TAZOBACTAM
- Assessment - Therapeutic Drug Monitoring
Random Level: 14.8 DRAWN ~20 HRS AFTER PREVIOUS DOSE VANCO 750MG
- Dosing Plan
Dosing by Level: Re-dose today (VANCO 750MG X1)
- Monitoring Plan
Random Level: 06/13 @0600
- Follow Up
Pharmacy will continue to follow.
Vancomycin Follow UP
- -
Patient Age: 65
Patient Sex: Male
Vancomycin Day #: 4
Indication: Skin And Soft Tissue
Requesting Provider: Aye
Pertinent Antimicrobial Allergies:
NKDA
Height / Weight:
Height 5 ft 9 in
Actual Weight 86.324 kg
Pertinent Past Medical History: PAD s/p LLE bypass, CKD 3B-4, failed 1 week of Keflex outpatient
- Vital Signs / Lab Results
Temp Pulse Resp BP Pulse Ox
97.5 F 79 16 123/74 97
06/11/25 23:46 06/11/25 23:46 06/11/25 23:46 06/11/25 23:46 06/11/25 23:46
Lab Results - Hematology
06/09/25 06/10/25 06/11/25
12:17 06:09 07:46
WBC 10.3 7.7 6.6
06/12/25
05:32
WBC 5.6
Lab Results - Chemistry
06/09/25 06/10/25 06/10/25
12:17 06:09 08:07
BUN 34 H Cancelled 26 H
Creatinine 2.4 H Cancelled 1.9 H
Estimated Creat Clear 34 Cancelled 39
Albumin Cancelled Cancelled 3.5
06/11/25 06/12/25
07:46 05:32
BUN 25 H 23 H
Creatinine 1.9 H 2.0 H
Estimated Creat Clear 39 37
Albumin 3.4 L 3.3 L
Microbiology Results
06/09/25 14:00 Blood Culture - Preliminary
Blood/Venous No Growth in 48 hours- Final report to follow
06/09/25 14:20 Blood Culture - Preliminary
Blood/Venous No Growth in 48 hours- Final report to follow
Therapeutic Drug Monitoring
Random Vancomycin 14.8 ug/ml 06/12/25 05:32
[2025-06-12 08:08] LABS: Glucose - Point of Care 117 mg/dl (70-99)
[2025-06-12] MEDS: NOVOLOG FLEXPEN-LOW RESISTANCE SC ×2 (08:24→12:29)
[2025-06-12] MEDS: VANCOCIN 150 IV (08:30)
[2025-06-12] MEDS: TOPROL XL 200 MG PO (08:35)
[2025-06-12] MEDS: DELTASONE 4 MG PO (08:35)
[2025-06-12] MEDS: ISORDIL 10 MG PO (08:37)
[2025-06-12] MEDS: NORVASC 10 MG PO (08:37)
[2025-06-12] MEDS: NON-FORMULARY ITEM 1.5 GRAMS PO (08:39)
[2025-06-12] MEDS: ELIQUIS 5 MG PO (08:39)
[2025-06-12] MEDS: GLUCOTROL 2.5 MG PO (09:26)
--- NOTE | 2025-06-12 10:18 | W.PN.HOSP.TC ---
Today's Communication/Plan
-
d/c
Assessment / Plan
Assessment / Plan
Gen: NAD, AAOx3.
Eyes: EOMI, PERRLA, no scleral icterus.
Neck: supple.
CV: remains RRR, +S1/S2, no m/r/g.
Resp: CTAB anteriorly, no rales, wheezes, or rhonchi.
Abd: +BS, soft, NT, ND
Skin: 21+ LLE edema, extremely minimal cellulitis
Neuro: CN 2-12 intact, non-focal.
Psych: Normal mood and affect.
06/09/25 14:00 Blood/Venous Blood Culture - Preliminary
No Growth in 48 hours- Final report to follow
06/09/25 14:20 Blood/Venous Blood Culture - Preliminary
No Growth in 48 hours- Final report to follow
LLE U/S: No sonographic evidence for left lower extremity deep venous thrombosis.
Left lower extremity cellulitis:
-nonpurulent
-was not responding to antibiotic therapy prior to admission
-currently on Vanco/Zosyn
-transition to 5 days Augmentin on d/c
PAD:
-h/o open surgical repair of the left popliteal artery aneurysm with medial exclusion/bypass using ipsilateral nonreversed greater saphenous vein conduit 10/09
-vascular saw in c/s and recommended LLE U/S to assess for DVT (note pt reports he had study done 06/06 as outpt that was NEG for DVT and has been compliant with Eliquis), U/S above and NEG for DVT
CAD:
Chronic HFmrEF:
Paroxysmal atrial flutter: Cont Eliquis
DM2: a1c 7.2%, SSI/accuchecks/diabetic diet. Clearly a component of steroid-induced hyperglycemia as patient is on chronic steroid therapy for pANCA vasculitis. Started on Glipizide 2.5mg daily.
CKD3b
Essential HTN: Amlodipine, Imdur, losartan, Toprol-XL
pANCA vasculitis/glomerulonephritis: cont Prednisone
FULL/Eliquis
Total time spent on d/c = 31 min. This included today's physical exam, progress note, review of laboratory and diagnostic data, preparation of discharge documents and prescriptions, and discussions about the pt's hospital course and discharge plan
with the patient and other medical front desk specialist involved in the patient's care.
Anticipated Discharge: Today
Subjective/Interval History
-
Date of Service: June 12, 2025
No new complaints.
Objective Data
-
Labs:
Laboratory Results
06/12/25
05:32
WBC 5.6
Hgb 11.6 L
Hct 35.4 L
Plt Count 344
Sodium 137
Potassium 4.0
Chloride 111 H
Carbon Dioxide 21 L
BUN 23 H
Creatinine 2.0 H
Glucose 106 H
Calcium 8.8
Total Bilirubin 0.5
AST 11 L
ALT < 10
Alkaline Phosphatase 46
Vital Signs:
Vital Signs
Temp Pulse Resp BP Pulse Ox
97.5 F 76 16 141/86 96
06/12/25 07:40 06/12/25 08:35 06/12/25 07:40 06/12/25 08:35 06/12/25 07:40
I&O
06/11/25 06/12/25 06/13/25
06:59 06:59 06:59
Intake Total 2800 / 2800 720 / 720
Output Total 1325 / 1325 300 / 300
Balance 1475 / 1475 420 / 420
--- NOTE | 2025-06-12 12:04 | W.DCSUMMARY ---
Discharge Summary
Discharge Data
Date of Admission: 06/09/25
Date of Discharge: 06/12/25
-
Pending Results: No
Hospital Course
Primary diagnoses:
Left lower extremity cellulitis, nonpurulent
Secondary diagnoses:
Peripheral arterial disease
Chronic heart failure with moderately reduced ejection fraction
Paroxysmal atrial flutter
Type 2 diabetes mellitus
Chronic kidney disease 3b
Essential hypertension
pANCA vasculitis/glomerulonephritis
Consultants:
Vascular surgery
Imaging:
LLE U/S: No sonographic evidence for left lower extremity deep venous thrombosis.
65-year-old male presented with chief complaint of left lower extremity erythema as outlined in H&P done on admission. Hospital course per problem list:
Left lower extremity cellulitis: Patient cellulitis was nonpurulent. He had been on Keflex for approximately 1 week prior to admission without improvement in his cellulitis. He was placed on vancomycin and Zosyn had a rapid improvement in his
cellulitis. He was discharged in medically stable condition on 5 further days of Augmentin.
Discharge Plan
-
Patient Disposition: Home (Routine Discharge)
Discharge Diagnosis/Procedures: Left lower extremity cellulitis
Condition: Good
Diet: Diabetic, Carb Controlled
Activity: As tolerated
Driving Restrictions: As prior to admission
Referrals:
Ameya Stevenson MD [Family Provider, [facility]] - in less than 1 week
Prescriptions:
New
glipizide 5 mg Tablet
2.5 mg PO DAILY Qty: 30 0RF
amoxicillin-pot clavulanate 875-125 mg tablet
1 tab PO BID Qty: 10 0RF
Continued
isosorbide dinitrate 10 MG tablet
10 mg PO TID
Eliquis 5 MG tablet
5 mg PO BID
losartan 50 mg Tablet
75 mg PO DAILY
amlodipine 10 mg Tablet
10 mg PO DAILY
metoprolol succinate [Toprol XL] 200 mg Tablet Extended Release 24 Hr
200 mg PO DAILY
prednisone 1 mg Tablet
4 mg PO DAILY
mesalamine 0.375 gram Capsule,Extended Release 24hr
1.5 g PO DAILY
Discontinued
cephalexin 500 mg capsule
500 mg PO QID 7 Days Qty: 28 0RF
Rx Instructions:
for 10 days starting 06/03/25
Discharge Orders:
Discharge Patient (As Directed); Ordered 06/12/25
Ordered By: Shola Ellis
Discharge Date and Time
Print Language: VINCENTIAN
[2025-06-12 12:19] VITALS: BP 154/98
[2025-06-12 12:33] LABS: Glucose - Point of Care 108 mg/dl (70-99)
== END 2025-06-12 12:42 | disposition home or self-care (01) | DRG 603 ==
LOC: 4 EAST ACU 15:04
PROVIDERS: Clinical Nurse Specialist Family Health; ADMITTING PHYSICIAN Internal Medicine; ATTENDING PHYSICIAN Internal Medicine; CONSULT PHYSICIAN Surgery Vascular Surgery; EMERGENCY PHYSICIAN Emergency Medicine; FAMILY PHYSICIAN Family Medicine
DX: L03.116 Cellulitis of left lower limb (principal); I13.0 Hypertensive heart and chronic kidney disease with heart failure and stage 1 through stage 4 chronic kidney disease, or unspecified chronic kidney disease; I50.22 Chronic systolic (congestive) heart failure; I48.92 Unspecified atrial flutter; Q21.12 Patent foramen ovale; N17.9 Acute kidney failure, unspecified; E11.51 Type 2 diabetes mellitus with diabetic peripheral angiopathy without gangrene; I25.10 Atherosclerotic heart disease of native coronary artery without angina pectoris; E11.22 Type 2 diabetes mellitus with diabetic chronic kidney disease; I25.5 Ischemic cardiomyopathy; N18.32 Chronic kidney disease, stage 3b; S80.12XA Contusion of left lower leg, initial encounter; E11.65 Type 2 diabetes mellitus with hyperglycemia; D63.1 Anemia in chronic kidney disease; I77.82 Antineutrophilic cytoplasmic antibody [ANCA] vasculitis; Z79.01 Long term (current) use of anticoagulants; Z79.899 Other long term (current) drug therapy; G47.30 Sleep apnea, unspecified; Z95.820 Peripheral vascular angioplasty status with implants and grafts; Z86.79 Personal history of other diseases of the circulatory system; Z79.52 Long term (current) use of systemic steroids; Z79.84 Long term (current) use of oral hypoglycemic drugs; X58.XXXA Exposure to other specified factors, initial encounter
CPT/HCPCS: 80048; 80053; 80202; 82962; 83036; 85025; 85652; 86140; 87040; 93971; 96365; 96375; 97161; 97530; 99284